=== PATIENT | male | born 1960 | race Caucasian/White ===

== ENCOUNTER 2018-04-04 11:33 | Emergency (ER) | payer BC, OTHER ==
[2018-04-04] MEDS ORDERED: Sodium Chloride 0.9% 1000 ML 1,000 ML IV STA (11:53)
--- NOTE | 2018-04-04 11:58 | ERPHSYRPT ---
- History of Present Illness Time Seen by Provider: 04/04/18 11:55 Source: patient Exam Limitations: no limitations Patient Subjective Stated Complaint: pt reports he has had a headache since tuesday-states he went to pcp yesterday and has inner fluid in his ear-placed on bactrim and given a toradol im injection yesterday at [facility]-states that his headache has not improved-denies numbness or tinlging or dizziness Triage Nursing Assessment: pt ambulatory in ed waiting room with no difficulty- moving all extremities with ease-states that he can not ambulate to ed room-pt moving all extremities with ease-no confusion noted-resp easy and nonlaobred Physician History: mild to mod headache for 4 days, no injury, no NV, no visual disturbance, no fever, speech fluent Allergies/Adverse Reactions: MICROSTITCHING Allergy (Uncoded 04/04/18 11:50) Home Medications: Hydrocodone Bit/Acetaminophen [Hydrocodon-Acetaminophen 5-325] 1 tab PO BID PRN 09/05/15 [History] Lisinopril 20 mg [Zestril 20 MG] 20 mg PO DAILY 09/05/15 [History] Omeprazole 40 mg PO DAILY 04/04/18 [History] Hx Tetanus, Diphtheria Vaccination/Date Given: Yes Hx Influenza Vaccination/Date Given: No Hx Pneumococcal Vaccination/Date Given: No Immunizations Up to Date: Yes - Review of Systems Constitutional: No Fever Eyes: No Photophobia, No Vision Changes Ears, Nose, & Throat: No Ear Discharge, No Throat Pain Respiratory: No Cough, No Dyspnea Cardiac: No Chest Pain Abdominal/Gastrointestinal: No Abdominal Pain, No Vomiting Musculoskeletal: No Back Pain, No Neck Pain Skin: No Rash Neurological: Headache, No Dizziness, No Focal Weakness, No Lethargy - Past Medical History Pertinent Past Medical History: Yes Cardiac History: Hypertension GI Medical History: Gallbladder Disease - Past Surgical History Past Surgical History: Yes Gastrointestinal: Cholecystectomy Musculoskeletal: Orthopedic Surgery Other Surgical History: RIGHT FOOT SURGERY - Social History Smoking Status: Former smoker Exposure to second hand smoke: No Drug Use: none Patient Lives Alone: No - Nursing Vital Signs Nursing Vital Signs: Initial Vital Signs Temperature 99.2 F 04/04/18 11:43 Pulse Rate 109 H 04/04/18 11:43 Respiratory Rate 18 04/04/18 11:43 Blood Pressure 128/89 04/04/18 11:43 O2 Sat by Pulse Oximetry 96 04/04/18 11:43 Pain Scale Pain Intensity 3 - Physical Exam General Appearance: no apparent distress Eye Exam: PERRL/EOMI, eyes nml inspection Ears, Nose, Throat Exam: moist mucous membranes Neck Exam: normal inspection, supple, full range of motion, No meningismus Respiratory Exam: normal breath sounds Cardiovascular Exam: regular rate/rhythm Gastrointestinal/Abdominal Exam: soft, No tenderness Back Exam: normal inspection, normal range of motion, No vertebral tenderness Extremity Exam: normal inspection, 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) Mental Status Exam: alert, oriented x 3, cooperative, other (cn 3 to 10 grossly intact) 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 Skin Exam: normal color, warm, dry SpO2 Interpretation: normal SpO2: 96 Oxygen Delivery: Room Air Procedures - Lumbar Puncture Timeout: Performed Indication: headache Lumbar Puncture: consent obtained, sitting, 1% lidocaine local anesth, size of needle, 3-4 lumbar space, fluid color clear, no complications Progress: 6cc clear and colorless csf under sterile prep, wbc 1, rbc 0, glu and prot grossly normal, OP normal range - Course Nursing assessment & vital signs reviewed: Yes - CT Exams Head CT Interpretation: Negative, Discussed w/radiologist Ordered Tests: Active Orders 24 hr Category Date Time Status HEAD WITHOUT CONTRAST [CT] Stat Exams 04/04/18 11:53 Completed CBC W DIFF Stat Lab 04/04/18 12:03 Completed CMP Stat Lab 04/04/18 12:03 Completed CSF GLUCOSE Stat Lab 04/04/18 18:12 Completed CSF PROTEIN Stat Lab 04/04/18 18:12 Completed CSF, CELL COUNT Stat Lab 04/04/18 18:12 Completed Erythrocyte Sedimentation Rate Stat Lab 04/04/18 12:03 Completed Manual Differential NC Stat Lab 04/04/18 12:03 Completed PROTIME WITH INR Stat Lab 04/04/18 12:03 Completed Medication Summary Discontinued Medications Generic Name Dose Route Start Last Admin Trade Name Freq PRN Reason Stop Dose Admin Acetaminophen 975 mg 04/04/18 11:53 04/04/18 12:25 Tylenol 325 Mg PO 04/04/18 11:54 975 mg STAT ONE Administration Acetaminophen Confirm 04/04/18 11:59 Tylenol 325 Mg Administered 04/04/18 12:00 Dose 975 mg .ROUTE .STK-MED ONE Acetaminophen Confirm 04/04/18 12:19 Tylenol 325 Mg Administered 04/04/18 12:20 Dose 975 mg .ROUTE .STK-MED ONE Sodium Chloride 1,000 mls @ 999 mls/hr 04/04/18 11:53 04/04/18 12:01 Sodium Chloride 0.9% 1000 Ml IV 04/04/18 12:53 999 mls/hr .Q1H1M STA Administration Sodium Chloride Confirm 04/04/18 11:59 Sodium Chloride 0.9% 1000 Ml Administered 04/04/18 12:00 Dose 1,000 mls @ ud .ROUTE .STK-MED ONE Lactated Ringer's Confirm 04/04/18 18:07 Lactated Ringers Administered 04/04/18 18:08 Dose 1,000 mls @ ud IV .STK-MED ONE Morphine Sulfate 4 mg 04/04/18 12:40 04/04/18 13:44 Morphine Sulfate 4 Mg Inj IV 04/04/18 12:41 4 mg STAT ONE Administration Morphine Sulfate Confirm 04/04/18 13:41 Morphine Sulfate 4 Mg Inj Administered 04/04/18 13:42 Dose 4 mg .ROUTE .STK-MED ONE Morphine Sulfate 2 mg 04/04/18 14:37 04/04/18 14:40 Morphine Sulfate 2 Mg Inj IV 04/04/18 14:38 2 mg STAT ONE Administration Morphine Sulfate Confirm 04/04/18 14:39 Morphine Sulfate 2 Mg Inj Administered 04/04/18 14:40 Dose 2 mg .ROUTE .STK-MED ONE Lab/Rad Data: Laboratory Result Diagrams 04/04/18 12:03 04/04/18 12:03 Laboratory Results 04/04/18 04/04/18 04/04/18 Range/Units 18:12 18:12 12:03 WBC (4.0-10.5) K/mm3 RBC (4.1-5.6) M/mm3 Hgb (12.5-18.0) gm/dl Hct (42-50) % MCV (78-100) fl MCH (26-32) pg MCHC (32-36) g/dl RDW (11.5-14.0) % Plt Count (150-450) K/mm3 MPV (6-9.5) fl Gran % (36.0-66.0) % Eos # (Auto) (0-0.5) Absolute Lymphs (auto) (1.0-4.6) Absolute Monos (auto) (0.0-1.3) Lymphocytes % (24.0-44.0) % Monocytes % (0.0-12.0) % Eosinophils % (0.00-5.0) % Basophils % (0.0-0.4) % Absolute Granulocytes (1.4-6.9) Basophils # (0-0.4) ESR (0-15) mm/hr PT (8.83-12.87) SECONDS INR (0.8-3.0) Sodium 138 (137-145) mmol/L Potassium 4.0 (3.5-5.1) mmol/L Chloride 101 (98-107) mmol/L Carbon Dioxide 22 (22-30) mmol/L Anion Gap 19.1 H (5-15) MEQ/L BUN 26 H (9-20) mg/dL Creatinine 1.05 (0.66-1.25) mg/dL Estimated GFR > 60.0 ML/MIN Glucose 133 H (74-106) mg/dL Calcium 9.8 (8.4-10.2) mg/dL Total Bilirubin 4.00 H (0.2-1.3) mg/dL AST 35 (17-59) U/L ALT 26 (0-50) U/L Alkaline Phosphatase 190 H (38-126) U/L Serum Total Protein 8.5 H (6.3-8.2) g/dL Albumin 4.6 (3.5-5.0) g/dL CSF Color COLORLESS CSF Clarity CLEAR CSF WBC 1 (0-6) CU. MM CSF RBC 0 (0-2) CU. MM CSF Protein (2) 31 (12-60) mg/dL CSF Glucose 72 H (40-70) mg/dL Slides for Path Review 04/04/18 04/04/18 Range/Units 12:03 12:03 WBC 11.4 H (4.0-10.5) K/mm3 RBC 5.00 (4.1-5.6) M/mm3 Hgb 14.8 (12.5-18.0) gm/dl Hct 44.2 (42-50) % MCV 88.4 (78-100) fl MCH 29.6 (26-32) pg MCHC 33.5 (32-36) g/dl RDW 13.6 (11.5-14.0) % Plt Count 117 L (150-450) K/mm3 MPV 13.5 H (6-9.5) fl Gran % 84.1 H (36.0-66.0) % Eos # (Auto) 0.01 (0-0.5) Absolute Lymphs (auto) 0.41 L (1.0-4.6) Absolute Monos (auto) 1.37 H (0.0-1.3) Lymphocytes % 3.6 L (24.0-44.0) % Monocytes % 12.0 (0.0-12.0) % Eosinophils % 0.1 (0.00-5.0) % Basophils % 0.2 (0.0-0.4) % Absolute Granulocytes 9.62 H (1.4-6.9) Basophils # 0.02 (0-0.4) ESR 20 H (0-15) mm/hr PT 14.9 H (8.83-12.87) SECONDS INR 1.28 (0.8-3.0) Sodium (137-145) mmol/L Potassium (3.5-5.1) mmol/L Chloride (98-107) mmol/L Carbon Dioxide (22-30) mmol/L Anion Gap (5-15) MEQ/L BUN (9-20) mg/dL Creatinine (0.66-1.25) mg/dL Estimated GFR ML/MIN Glucose (74-106) mg/dL Calcium (8.4-10.2) mg/dL Total Bilirubin (0.2-1.3) mg/dL AST (17-59) U/L ALT (0-50) U/L Alkaline Phosphatase (38-126) U/L Serum Total Protein (6.3-8.2) g/dL Albumin (3.5-5.0) g/dL CSF Color CSF Clarity CSF WBC (0-6) CU. MM CSF RBC (0-2) CU. MM CSF Protein (2) (12-60) mg/dL CSF Glucose (40-70) mg/dL Slides for Path Review YES - Progress Progress: improved Progress Note: 04/04/18 18:34 continue your outpatient bactrim ds. differential d/w pt as sinusitis, migraine , cancer 04/04/18 18:37 Counseled pt/family regarding: lab results, diagnosis, need for follow-up, rad results - Departure Time of Disposition: 18:35 Departure Disposition: Home Clinical Impression: Headache Qualifiers: Headache type: other headache syndrome Qualified Code(s): G44.89 - Other headache syndrome Condition: Stable Critical Care Time: No Referrals: JALEN ROMANO [Primary Care Provider] - Instructions: Headache, Adult (DC) Additional Instructions: continue your bactrim ds, norco script warnings given, return if worse, see your doctor
[2018-04-04] MEDS ORDERED: Sodium Chloride 0.9% 1000 ML 1,000 ML ONE (11:59)
[2018-04-04] MEDS ORDERED: TYLENOL 325 MG ONE ×2 (11:59→12:19)
[2018-04-04] MEDS: TYLENOL 325 MG PO ONE ×2 (12:03→12:25)
[2018-04-04 12:08] LABS: Granulocyte Absolute (ANC) 9.62 (1.4-6.9); Hematocrit 44.2 % (42-50); Hemoglobin 14.8 gm/dl (12.5-18.0); Mean Cell Volume 88.4 fl (78-100); Mean Corpuscular Hemoglobin 29.6 pg (26-32); Mean Corpuscular Hgb Concent. 33.5 g/dl (32-36); Mean Platelet Volume 13.5 fl (6-9.5); Platelet Count 117 K/mm3 (150-450); Red Cell Distribution Width 13.6 % (11.5-14.0); White Blood Count 11.4 K/mm3 (4.0-10.5)
[2018-04-04 12:18] LABS: ALBUMIN 4.6 g/dL (3.5-5.0); ALKALINE PHOSPHATASE 190 U/L (38-126); ANION GAP 19.1 MEQ/L (5-15); BLOOD UREA NITROGEN 26 mg/dL (9-20); CHLORIDE 101 mmol/L (98-107); Calcium 9.8 mg/dL (8.4-10.2); Carbon Dioxide 22 mmol/L (22-30); Creatinine 1 1.05 mg/dL (0.66-1.25); Glucose 133 mg/dL (74-106); SGOT/AST 35 U/L (17-59); SGPT/ALT 26 U/L (0-50); SODIUM 138 mmol/L (137-145); Total Protein 8.5 g/dL (6.3-8.2)
[2018-04-04 12:33] LABS: INR 1.28 (0.8-3.0)
--- NOTE | 2018-04-04 12:37 | XRAY ---
Indication: Headache and weakness. Multiple contiguous axial images obtained through the head without contrast. Comparison: None Normal appearing brain parenchyma, ventricles, and bony calvarium. Visualized paranasal sinuses and mastoid air cells are clear. Impression: Normal CT head without contrast exam. CT DI 67.41
[2018-04-04] MEDS ORDERED: MORPHINE SULFATE 4 MG INJ IV ONE (12:40)
[2018-04-04 12:54] LABS: BASOPHIL % 0.2 % (0.0-0.4); Basophil (Absolute #) 0.02 (0-0.4); Eosinophil % 0.1 % (0.00-5.0); Eosinophil (Absolute #) 0.01 (0-0.5); Granulocytes % 84.1 % (36.0-66.0); Lymphocyte (Absolute #) 0.41 (1.0-4.6); Lymphocytes % 3.6 % (24.0-44.0); Monocyte (Absolute #) 1.37 (0.0-1.3)
[2018-04-04 13:01] LABS: Slide Review 1 YES
[2018-04-04] MEDS ORDERED: MORPHINE SULFATE 4 MG INJ ONE (13:41)
[2018-04-04] MEDS ORDERED: MORPHINE SULFATE 2 MG INJ IV ONE (14:37)
[2018-04-04] MEDS ORDERED: MORPHINE SULFATE 2 MG INJ ONE (14:39)
[2018-04-04 17:26] LABS: Erythrocyte Sedimentation Rate 20 mm/hr (0-15)
[2018-04-04] MEDS ORDERED: Lactated Ringers 1,000 ML IV ONE (18:07)
[2018-04-04 18:22] LABS: CSF GLUCOSE 72 mg/dL (40-70); CSF PROTEIN 31 mg/dL (12-60)
[2018-04-04 18:25] LABS: CSF CLARITY CLEAR; CSF COLOR COLORLESS; CSF RBCS 0 CU. MM (0-2)
[2018-04-04 18:26] LABS: CSF WBCS 1 CU. MM (0-6)
[2018-04-04 19:14] VITALS: BP 127/89; PULSE 78; O2SAT 100
== END 2018-04-04 19:36 | disposition home or self-care (01) ==
LOC: ED 11:33
DX: G44.89 Other headache syndrome (principal); Z79.899 Other long term (current) drug therapy
CPT/HCPCS: 36415; 62270; 70450; 80053; 82945; 84157; 85025; 85610; 85652; 89050; 96360; 96374; 96376; 99284; 99285; J2270; A9270-GY

== ENCOUNTER 2019-03-20 12:03 | Emergency (ER) | payer BC ==
[2019-03-20] MEDS ORDERED: TORAdol 30 mg Injection IM ONE (12:33)
[2019-03-20] MEDS ORDERED: TORAdol 30 mg Injection ONE (12:35)
[2019-03-20 12:36] VITALS: O2SAT 98
--- NOTE | 2019-03-20 12:37 | ERPHSYRPT ---
- History of Present Illness Time Seen by Provider: 03/20/19 12:26 Source: patient Exam Limitations: no limitations Physician History: 58-year-old white male with history of high blood pressure, arthritis, chronic pain Patient arrives with complaint of pain in his right foot along the lateral distal first metacarpal symptoms off and on since Tuesday 3 days ago. He denies any injury. Patient is chronically on narcotic analgesia currently taking oxycodone 10/325 he received 120 of these on March 06, 2019 he states he takes this for hand pain. Past medical history includes high blood pressure, arthritis Past surgical history includes cholecystectomy, orthopedic surgery with a right foot Social history former smoker occasional alcohol denies illicit drug use Method of Injury: unknown Occurred: days ago (pain for 3 days) Quality: intermittent, sharpness, stabbing Severity of Pain-Max: moderate Severity of Pain-Current: mild Lower Extremities Pain: foot: right Modifying Factors: Improves With: nothing Associated Symptoms: none Allergies/Adverse Reactions: piperacillin [From Zosyn] Allergy (Verified 03/20/19 12:40) suture Allergy (Verified 03/20/19 12:45) states is allergic to vicryl stitching tazobactam [From Zosyn] Allergy (Verified 03/20/19 12:40) Home Medications: Lisinopril 20 mg [Zestril 20 MG] 20 mg PO DAILY 09/05/15 [History] Omeprazole 40 mg PO DAILY 04/04/18 [History] Multivitamin [[id number]] 1 each PO DAILY 03/20/19 [History] Oxycodone / APAP 10/325 mg [Oxycodone-Acetaminophen 10-325] 1 tab PO QID 03/20/19 [History] Tizanidine HCl 2 mg PO BID 03/20/19 [History] Hx Tetanus, Diphtheria Vaccination/Date Given: Yes Hx Influenza Vaccination/Date Given: No Hx Pneumococcal Vaccination/Date Given: No - Review of Systems Constitutional: No Fever, No Chills Eyes: No Symptoms Ears, Nose, & Throat: No Symptoms Respiratory: No Cough, No Dyspnea Cardiac: No Chest Pain, No Edema, No Syncope Abdominal/Gastrointestinal: No Abdominal Pain, No Nausea, No Vomiting, No Diarrhea Genitourinary Symptoms: No Dysuria Musculoskeletal: Other (right foot pain) Skin: No Rash Neurological: No Dizziness, No Focal Weakness, No Sensory Changes Psychological: No Symptoms Endocrine: No Symptoms All Other Systems: Reviewed and Negative - Past Medical History Pertinent Past Medical History: Yes Cardiac History: Hypertension GI Medical History: Gallbladder Disease - Past Surgical History Past Surgical History: Yes Gastrointestinal: Cholecystectomy Musculoskeletal: Orthopedic Surgery Other Surgical History: RIGHT FOOT SURGERY - Social History Smoking Status: Former smoker Exposure to second hand smoke: No Drug Use: none Patient Lives Alone: No - Nursing Vital Signs Nursing Vital Signs: Initial Vital Signs Temperature 97.6 F 03/20/19 12:12 Pulse Rate 68 03/20/19 12:12 Respiratory Rate 16 03/20/19 12:12 Blood Pressure 119/73 03/20/19 12:12 O2 Sat by Pulse Oximetry 98 03/20/19 12:12 Pain Scale Pain Intensity [] 10 Pain Intensity 10 - Physical Exam General Appearance: alert Eyes, Ears, Nose, Throat Exam: moist mucous membranes Neck Exam: non-tender, supple Cardiovascular/Respiratory Exam: chest non-tender, normal breath sounds, regular rate/rhythm, no respiratory distress Gastrointestinal/Abdominal Exam: non-tender, soft, no organomegaly, guarding, No tenderness Back Exam: normal inspection, No vertebral tenderness Hips Exam: bilateral: non-tender, normal inspection, normal range of motion, no evidence of injury Legs Exam: bilateral leg: non-tender, normal inspection, normal range of motion , no evidence of injury Knees Exam: bilateral knee: non-tender, normal inspection, normal range of motion, no evidence of injury Ankle Exam: bilateral ankle: non-tender, normal inspection, normal range of motion, no evidence of injury Foot Exam: right foot: other (mild tenderness with palpation. Right foot medial surface along first metatarsal.), left foot: non-tender, normal inspection, bilateral foot: normal range of motion DTR - Lower Extremities Exam: ankle (R): 2+, ankle (L): 2+ Neuro/Tendon Exam: normal sensation, normal motor functions Mental Status Exam: alert, oriented x 3, cooperative Skin Exam: normal color, warm, dry SpO2 Interpretation: normal (98%) - Course Nursing assessment & vital signs reviewed: Yes - Radiology Exams Right Foot X-ray Interpretation: Discussed w/ radiologist (x-ray right foot: Impression old calcaneal fracture with intact lateral plates/screws. No other bony, articu , or soft tissue abnormalities.) Ordered Tests: Active Orders 24 hr Category Date Time Status FOOT (MINIMUM 3 VIEWS) Stat Exams 03/20/19 12:32 Completed Medication Summary Discontinued Medications Generic Name Dose Route Start Last Admin Trade Name Jose PRN Reason Stop Dose Admin Ketorolac Tromethamine 60 mg 03/20/19 12:33 03/20/19 12:36 Toradol 30 Mg Injection IM 03/20/19 12:34 60 mg STAT ONE Administration Ketorolac Tromethamine Confirm 03/20/19 12:35 Toradol 30 Mg Injection Administered 03/20/19 12:36 Dose 60 mg .ROUTE .[employer]-MED ONE - Progress Progress: improved Progress Note: 03/20/19 13:07 58-year-old white male arrives with complaint of intermittent right foot pain for 3 days. No known injury. Patient with old calcaneal fracture on the right foot. Patient with chronic pain and is on Percocet chronically. 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 X-ray right foot no acute fractures. Will go ahead and place postop shoe on patient's right foot patient is given Toradol Will place him on Naprosyn 500 mg orally twice a day #10. Will have patient off work tomorrow. Follow-up with his family doctor if symptoms worse no better in 48 hours or persist longer than one week. - Departure Departure Disposition: Home Clinical Impression: Right foot pain Condition: Fair Critical Care Time: No Referrals: JALEN ROMANO [Primary Care Provider] - Additional Instructions: Return home. Cold packs right foot 24-48 hours. Naprosyn as prescribed. Narcotic analgesia as prescribed by your pain airport control operator. Follow-up with your family doctor if symptoms are worse, no better in 48 hours, or persist longer than one week. Return for acute distress or for severe symptoms. Prescriptions: Naproxen 500 mg [Naprosyn 500 MG] 500 mg PO BIDPRN PRN #10 tablet PRN Reason: Pain
--- NOTE | 2019-03-20 13:00 | XRAY ---
Indication: Pain. No known injury. Comparison: None 3 nonweightbearing views of the right foot demonstrates old calcaneal fracture with intact lateral plate/screws. No other bony, articular, or soft tissue abnormalities.
[2019-03-20 13:20] VITALS: BP 114/60; PULSE 64
== END 2019-03-20 13:30 | disposition home or self-care (01) ==
LOC: ED 12:03
DX: M79.671 Pain in right foot (principal); M19.90 Unspecified osteoarthritis, unspecified site
CPT/HCPCS: 73630; 96372; 99284; J1885

== ENCOUNTER 2019-12-17 03:20 | Emergency (ER) | payer BC, OTHER ==
[2019-12-17] MEDS ORDERED: Zofran 4 MG/2 ML VIAL IV ONE ×2 (04:11→08:29)
[2019-12-17] MEDS ORDERED: MORPHINE SULFATE 4 MG INJ IV ONE ×2 (04:11→05:22)
[2019-12-17 04:19] LABS: Absolute Neutrophil Ct (ANC) 13.38 (1.4-6.9); BASOPHIL % 0.1 % (0.0-0.4); Basophil (Absolute #) 0.01 (0-0.4); Eosinophil (Absolute #) 0 (0-0.5); Hematocrit 46.9 % (42-50); Hemoglobin 16.1 gm/dl (12.5-18.0); Mean Cell Volume 89.2 fl (78-100); Mean Corpuscular Hemoglobin 30.6 pg (26-32); Mean Corpuscular Hgb Concent. 34.3 g/dl (32-36); Mean Platelet Volume 12.8 fl (7.5-11.0); Monocyte (Absolute #) 1.13 (0.0-1.3); Monocytes % 7.6 % (0.0-12.0); Neutrophil % 90.3 % (36.0-66.0); Platelet Count 140 K/mm3 (150-450); Red Blood Count 5.26 M/mm3 (4.1-5.6); Red Cell Distribution Width 13.4 % (11.5-14.0); White Blood Count 14.8 K/mm3 (4.0-10.5)
[2019-12-17] MEDS ORDERED: MORPHINE SULFATE 4 MG INJ ONE ×2 (04:19→05:25)
[2019-12-17] MEDS ORDERED: Sodium Chloride 0.9% 1000 ML 1,000 ML ONE (04:19)
[2019-12-17] MEDS ORDERED: Zofran 4 MG/2 ML VIAL ONE ×2 (04:19→08:37)
[2019-12-17] MEDS: Sodium Chloride 0.9% 1000 ML 1,000 ML IV SCH ×2 (04:23→04:59)
--- NOTE | 2019-12-17 04:26 | ERPHSYRPT ---
- History of Present Illness Historian: patient, family Exam Limitations: no limitations Patient Subjective Stated Complaint: pt states that he has had n/v/d for the past couple of days, pt states that he has a headache and abdomen pain, pt states that he has vomited a handful of times, pt states that he has had 1 loose stool, pt states he has had poor oral intake for the past couple of days, pt states he took gas x at 2230 on 12/16/19 Triage Nursing Assessment: pt ambulated into the er, pt is axo x4, pt has hypoactive bowel sounds in all quads, pt abdomen is firm, pt has pain midline of abdomen, pt has clear lung sounds, pt scleras are mildly yellow, pt states 4/ 10 pain to head and abdomen, pt c/o of n/v, pt is hypertensive Timing/Duration: day(s) Activities at Onset: none Quality: sharpness, stabbing, throbbing Abdominal Pain Onset Location: RUQ, RLQ, epigastric Severity of Pain-Max: moderate Severity of Pain-Current: moderate Modifying Factors: Improves With: movement, palpation, vomiting Associated Symptoms: diarrhea, fever/chills, headache, nausea, vomiting Previous symptoms: no prior history, no recent treatment Hx Tetanus, Diphtheria Vaccination/Date Given: Yes (unknown) Hx Influenza Vaccination/Date Given: No Hx Pneumococcal Vaccination/Date Given: No <JOSE L POTTER - Last Filed: 12/17/19 07:04> <SETH MURDOCK - Last Filed: 12/18/19 00:10> - History of Present Illness Time Seen by Provider: 12/17/19 04:21 Physician History: pt has had n/v/d a few days but now has abdominal pain and maybe fever - appears jaundiced - no trauma; tender RUQ and entire right abdomen; (JOSE L POTTER) Allergies/Adverse Reactions: piperacillin [From Zosyn] Allergy (Verified 12/17/19 03:44) suture Allergy (Verified 12/17/19 03:44) states is allergic to vicryl stitching tazobactam [From Zosyn] Allergy (Verified 12/17/19 03:44) Home Medications: Lisinopril 20 mg [Zestril 20 MG] 20 mg PO DAILY 09/05/15 [History] Omeprazole 40 mg PO DAILY 04/04/18 [History] Multivitamin [[id number]] 1 each PO DAILY 03/20/19 [History] Pravastatin Sodium 40 mg PO DAILY 12/17/19 [History] - Review of Systems Constitutional: Fever, Chills, Malaise Eyes: No Symptoms Ears, Nose, & Throat: No Symptoms Respiratory: No Cough, No Dyspnea Cardiac: No Chest Pain, No Edema, No Syncope Abdominal/Gastrointestinal: Abdominal Pain, Nausea, Vomiting, Diarrhea Genitourinary Symptoms: No Dysuria Musculoskeletal: Arthralgias, Myalgias, No Back Pain, No Neck Pain Skin: No Symptoms, No Rash Neurological: No Dizziness, No Focal Weakness, No Sensory Changes Psychological: No Symptoms Endocrine: No Symptoms All Other Systems: Reviewed and Negative <JOSE L POTTER - Last Filed: 12/17/19 07:04> - Past Medical History Pertinent Past Medical History: Yes Cardiac History: Hypertension GI Medical History: Gallbladder Disease 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 - Past Surgical History Past Surgical History: Yes Gastrointestinal: Cholecystectomy Musculoskeletal: Orthopedic Surgery Other Surgical History: RIGHT FOOT SURGERY, surgery on rt hand - Social History Smoking Status: Former smoker Exposure to second hand smoke: Yes Drug Use: none Patient Lives Alone: No <JOSE L POTTER - Javi Filed: 12/17/19 07:04> - Physical Exam General Appearance: no apparent distress, alert Eye Exam: PERRL/EOMI, eyes nml inspection Ears, Nose, Throat Exam: normal ENT inspection, pharynx normal, moist mucous membranes Neck Exam: normal inspection, non-tender, supple, full range of motion Respiratory Exam: normal breath sounds, lungs clear, No respiratory distress Cardiovascular Exam: regular rate/rhythm, normal heart sounds Gastrointestinal/Abdomen Exam: soft, tenderness, guarding, rebound, No mass Rectal Exam: deferred Back Exam: normal inspection, normal range of motion, No CVA tenderness, No vertebral tenderness Extremity Exam: normal inspection, normal range of motion, pelvis stable Neurologic Exam: alert, oriented x 3, cooperative, normal mood/affect, nml cerebellar function, sensation nml, No motor deficits Skin Exam: normal color, warm, dry SpO2 Interpretation: normal SpO2: 95 O2 Delivery: Room Air <JOSE L POTTER - Last Filed: 12/17/19 07:04> - Physical Exam General Appearance: mild distress (The patient appears to be uncomfortable on my exam) Ears, Nose, Throat Exam: other (Mucus membranes appear to be dry on my exam) Cardiovascular Exam: normal peripheral pulses, tachycardia, capillary refill <2 sec Skin Exam: jaundice <SETH MURDOCK - Last Filed: 12/18/19 00:10> - Nursing Vital Signs Nursing Vital Signs: Initial Vital Signs Temperature 98.3 F 12/17/19 03:32 Pulse Rate 111 H 12/17/19 03:32 Respiratory Rate 15 12/17/19 03:32 Blood Pressure 155/97 12/17/19 03:32 O2 Sat by Pulse Oximetry 95 12/17/19 03:32 Pain Scale Pain Intensity 0 Procedures - Central Line Timeout: Performed Central Line Lumen: triple Lumen Size: 7 [place] Central Line Procedure: chlorahexadine prep, sterile drapes applied, sterile dressing applied, Aseptic Technique, Seldinger Technique, Intracath Central Line Postion: femoral (R) Anesthesia: 1% Lidocaine cc's of anesthesia: 5 Ultrasound Guided Placement: Yes Complications: none Central Line Post Position: sutured <SETH MURDOCK - Last Filed: 12/18/19 00:10> - Course Nursing assessment & vital signs reviewed: Yes EKG Interpreted by Me: Sinus Tach, Left Trivoli Deviation, 1st degree AV Block, Non -specific ST Changes <JOSE L POTTER - Last Filed: 12/17/19 07:04> - Course Nursing assessment & vital signs reviewed: Yes <SETH MURDOCK - Last Filed: 12/18/19 00:10> Ordered Tests: Active Orders 24 hr Category Date Time Status EKG-ER Only STAT Care 12/17/19 04:11 Active IV Insertion STAT Care 12/17/19 04:11 Active IV Insertion STAT Care 12/17/19 07:16 Active NPO (ED) STAT Care 12/17/19 04:11 Active PO Fluid Challenge STAT Care 12/17/19 08:30 Active Re-Check Vital Signs STAT Care 12/17/19 08:18 Active ABDOMEN AND PELVIS W/0 CONTRAS [CT] Stat Exams 12/17/19 04:11 Completed ACETAMINOPHEN Stat Lab 12/17/19 04:30 Completed AMYLASE Stat Lab 12/17/19 04:19 Completed BMP Stat Lab 12/17/19 13:12 Completed CBC W DIFF Stat Lab 12/17/19 04:19 Completed CBC W DIFF Stat Lab 12/17/19 13:12 Completed CMP Stat Lab 12/17/19 04:19 Completed Hepatic Function Panel Stat Lab 12/17/19 13:12 Completed LIPASE Stat Lab 12/17/19 04:19 Completed Lactic Acid Stat Lab 12/17/19 05:08 Completed Lactic Acid Stat Lab 12/17/19 13:15 Completed PROTIME WITH INR Stat Lab 12/17/19 04:40 Completed TROPONIN Q3H Lab 12/17/19 04:19 Completed TROPONIN Q3H Lab 12/17/19 07:20 Completed TROPONIN Q3H Lab 12/17/19 10:10 Completed TROPONIN Q3H Lab 12/17/19 13:00 Completed TROPONIN Q3H Lab 12/17/19 16:15 Completed UA W/RFX UR CULTURE Stat Lab 12/17/19 06:00 Completed Medication Summary Discontinued Medications Generic Name Dose Route Start Last Admin Trade Name Freq PRN Reason Stop Dose Admin Acetaminophen 975 mg 12/17/19 10:14 12/17/19 10:22 Tylenol 325 Mg PO 12/17/19 10:15 975 mg STAT ONE Administration Acetaminophen Confirm 12/17/19 10:21 Tylenol 325 Mg Administered 12/17/19 10:22 Dose 975 mg .ROUTE .STK-MED ONE Acetaminophen Confirm 12/17/19 16:59 Tylenol Extra Strength 500 Mg Administered 12/17/19 17:00 Dose 1,000 mg .ROUTE .STK-MED ONE Diphenhydramine HCl 25 mg 12/17/19 05:22 12/17/19 05:32 Benadryl 50 Mg/Ml IV 12/17/19 05:23 25 mg STAT ONE Administration Diphenhydramine HCl Confirm 12/17/19 05:25 Benadryl 50 Mg/Ml Administered 12/17/19 05:26 Dose 50 mg .ROUTE .STK-MED ONE Hydromorphone HCl 1 mg 12/17/19 08:29 12/17/19 08:39 Hydromorphone 1 Mg/Ml Ampule IV 12/17/19 08:30 1 mg STAT ONE Administration Hydromorphone HCl Confirm 12/17/19 08:37 Hydromorphone 1 Mg/Ml Ampule Administered 12/17/19 08:38 Dose 1 mg .ROUTE .STK-MED ONE Sodium Chloride 1,000 mls @ 100 mls/hr 12/17/19 04:15 12/17/19 04:59 Sodium Chloride 0.9% 1000 Ml IV 01/16/20 04:14 Not Given .Q10H BRITTANEY Sodium Chloride 1,000 mls @ 999 mls/hr 12/17/19 04:29 12/17/19 05:57 Sodium Chloride 0.9% 1000 Ml IV 12/17/19 05:29 Infused .Q1H1M STA Infusion Metronidazole 500 mg in 100 mls @ 200 mls/hr 12/17/19 04:34 12/17/19 05:17 Flagyl 500 Mg Ivpb IV 12/17/19 05:03 Infused STAT STA Infusion Ceftriaxone Sodium/Dextrose 1 g in 50 mls @ 100 mls/hr 12/17/19 04:34 05:16 Rocephin 1 Gm-D5w 50 Ml Bag IV 12/17/19 05:03 Infused STAT STA Infusion Ceftriaxone Sodium/Dextrose Confirm 12/17/19 04:42 Rocephin 1 Gm-D5w 50 Ml Bag Administered 12/17/19 04:43 Dose 1 g in 50 mls @ ud IV .STK-MED ONE Metronidazole Confirm 12/17/19 04:43 Flagyl 500 Mg Ivpb Administered 12/17/19 04:44 Dose 500 mg in 100 mls @ ud IV .STK-MED ONE Meropenem 1 g/ Sodium Chloride 100 mls @ 200 mls/hr 12/17/19 07:08 12/17/19 09:00 IV 12/17/19 07:37 Infused STAT STA Infusion Dextrose/Lactated Ringer's 1,000 mls @ 150 mls/hr 12/17/19 07:30 12/17/19 15: 19 Dextrose 5%-Lr Iv Solution 1000 Ml IV 01/16/20 07:29 Infused .Q6H40M BRITTANEY Infusion Lactated Ringer's 1,000 mls @ 999 mls/hr 12/17/19 07:17 12/17/19 09:00 Lactated Ringers IV 12/17/19 08:17 Infused .Q1H1M ONE Infusion Sodium Chloride Confirm 12/17/19 04:19 Sodium Chloride 0.9% 1000 Ml Administered 12/17/19 04:20 Dose 1,000 mls @ ud .ROUTE .STK-MED ONE Sodium Chloride Confirm 12/17/19 07:48 Sodium Chloride 0.9% 100 Ml Ivpb Administered 12/17/19 07:49 Dose 100 mls @ ud IV .STK-MED ONE Lactated Ringer's Confirm 12/17/19 07:49 Lactated Ringers Administered 12/17/19 07:50 Dose 1,000 mls @ ud IV .STK-MED ONE Metronidazole 500 mg in 100 mls @ 200 mls/hr 12/17/19 12:45 12/17/19 13:36 Flagyl 500 Mg Ivpb IV 12/17/19 13:14 Infused STAT STA Infusion Metronidazole Confirm 12/17/19 12:53 Flagyl 500 Mg Ivpb Administered 12/17/19 12:54 Dose 500 mg in 100 mls @ ud IV .STK-MED ONE Lactated Ringer's 1,000 mls @ 999 mls/hr 12/17/19 14:03 12/17/19 15:20 Lactated Ringers IV 12/17/19 15:03 Infused .Q1H1M ONE Infusion Lactated Ringer's Confirm 12/17/19 14:05 Lactated Ringers Administered 12/17/19 14:06 Dose 1,000 mls @ ud IV .STK-MED ONE Lactated Ringer's Confirm 12/17/19 17:29 Lactated Ringers Administered 12/17/19 17:30 Dose 1,000 mls @ ud IV .STK-MED ONE Dextrose/Lactated Ringer's Confirm 12/17/19 07:49 Dextrose 5%-Lr Iv Solution 1000 Ml Administered 12/17/19 07:50 Dose 1,000 mls @ ud IV .STK-MED ONE Dextrose/Lactated Ringer's Confirm 12/17/19 17:31 Dextrose 5%-Lr Iv Solution 1000 Ml Administered 12/17/19 17:32 Dose 1,000 mls @ ud IV .STK-MED ONE Ketorolac Tromethamine 30 mg 12/17/19 07:21 12/17/19 08:38 Toradol 30 Mg Injection IV 12/17/19 07:22 30 mg STAT ONE Administration Ketorolac Tromethamine Confirm 12/17/19 08:37 Toradol 30 Mg Injection Administered 12/17/19 08:38 Dose 30 mg .ROUTE .STK-MED ONE Ketorolac Tromethamine Confirm 12/17/19 12:53 Toradol 30 Mg Injection Administered 12/17/19 12:54 Dose 30 mg .ROUTE .STK-MED ONE Ketorolac Tromethamine 15 mg 12/17/19 12:53 12/17/19 13:03 Toradol 30 Mg Injection IV 12/17/19 12:54 15 mg STAT ONE Administration Ketorolac Tromethamine 15 mg 12/17/19 12:54 12/17/19 13:08 Toradol 30 Mg Injection IV 12/17/19 12:55 Not Given STAT ONE Ketorolac Tromethamine 15 mg 12/17/19 13:01 12/17/19 13:13 Toradol 30 Mg Injection IV 12/17/19 13:02 Not Given STAT ONE Lidocaine HCl Confirm 12/17/19 16:41 Xylocaine 1% Hcl 20 Ml Mdv Administered 12/17/19 16:42 Dose 10 ml .ROUTE .STK-MED ONE Meropenem Confirm 12/17/19 07:48 Merrem 1 Gm Administered 12/17/19 07:49 Dose 1 g IV .STK-MED ONE Morphine Sulfate 4 mg 12/17/19 04:11 12/17/19 04:21 Morphine Sulfate 4 Mg Inj IV 12/17/19 04:12 4 mg STAT ONE Administration Morphine Sulfate Confirm 12/17/19 04:19 Morphine Sulfate 4 Mg Inj Administered 12/17/19 04:20 Dose 4 mg .ROUTE .STK-MED ONE Morphine Sulfate 4 mg 12/17/19 05:22 12/17/19 05:34 Morphine Sulfate 4 Mg Inj IV 12/17/19 05:23 4 mg STAT ONE Administration Morphine Sulfate Confirm 12/17/19 05:25 Morphine Sulfate 4 Mg Inj Administered 12/17/19 05:26 Dose 4 mg .ROUTE .STK-MED ONE Ondansetron HCl 4 mg 12/17/19 04:11 12/17/19 04:22 Zofran 4 Mg/2 Ml Vial IV 12/17/19 04:12 4 mg STAT ONE Administration Ondansetron HCl Confirm 12/17/19 04:19 Zofran 4 Mg/2 Ml Vial Administered 12/17/19 04:20 Dose 4 mg .ROUTE .STK-MED ONE Ondansetron HCl 4 mg 12/17/19 08:29 12/17/19 08:39 Zofran 4 Mg/2 Ml Vial IV 12/17/19 08:30 4 mg STAT ONE Administration Ondansetron HCl Confirm 12/17/19 08:37 Zofran 4 Mg/2 Ml Vial Administered 12/17/19 08:38 Dose 4 mg .ROUTE .STK-MED ONE Pantoprazole Sodium 40 mg 12/17/19 07:20 12/17/19 08:38 Protonix 40 Mg Iv IV 12/17/19 07:21 40 mg STAT ONE Administration Pantoprazole Sodium Confirm 12/17/19 08:37 Protonix 40 Mg Iv Administered 12/17/19 08:38 Dose 40 mg IV .STK-MED ONE Lab/Rad Data: Laboratory Result Diagrams 12/17/19 13:12 12/17/19 13:12 Laboratory Results 12/17/19 12/17/19 12/17/19 Range/Units 16:15 13:15 13:12 WBC (4.0-10.5) K/mm3 RBC (4.1-5.6) M/mm3 Hgb (12.5-18.0) gm/dl Hct (42-50) % MCV (78-100) fl MCH (26-32) pg MCHC (32-36) g/dl RDW (11.5-14.0) % Plt Count (150-450) K/mm3 MPV (7.5-11.0) fl Gran % (36.0-66.0) % Eos # (Auto) (0-0.5) Absolute Lymphs (auto) (1.0-4.6) Absolute Monos (auto) (0.0-1.3) Lymphocytes % (24.0-44.0) % Monocytes % (0.0-12.0) % Eosinophils % (0.00-5.0) % Basophils % (0.0-0.4) % Absolute Granulocytes (1.4-6.9) Basophils # (0-0.4) PT (8.83-12.87) SECONDS INR (0.8-3.0) Sodium 137 (137-145) mmol/L Potassium 3.6 (3.5-5.1) mmol/L Chloride 102 (98-107) mmol/L Carbon Dioxide 25 (22-30) mmol/L Anion Gap 13.7 (5-15) MEQ/L BUN 19 (9-20) mg/dL Creatinine 0.90 (0.66-1.25) mg/dL Estimated GFR > 60.0 ML/MIN Glucose 117 H (74-106) mg/dL Lactic Acid 1.2 (0.4-2.0) Calcium 8.2 L D (8.4-10.2) mg/dL Total Bilirubin 6.20 H (0.2-1.3) mg/dL Direct Bilirubin 2.9 H (0.0-0.4) mg/dL AST 234 H (17-59) U/L ALT 313 H (0-50) U/L Alkaline Phosphatase 136 H (38-126) U/L Troponin I < 0.012 (0.000-0.034) ng/mL Serum Total Protein 6.6 (6.3-8.2) g/dL Albumin 3.7 (3.5-5.0) g/dL Amylase (30-110) U/L Lipase (23-300) U/L Urine Color (YELLOW) Urine Appearance (CLEAR) Urine pH (5-6) Ur Specific Lemmon (1.005-1.025) Urine Protein (Negative) Urine Ketones (NEGATIVE) Urine Blood (0-5) Abdullahi/ul Urine Nitrite (NEGATIVE) Urine Bilirubin (NEGATIVE) Urine Urobilinogen (0-1) mg/dL Ur Leukocyte Esterase (NEGATIVE) Urine WBC (Auto) (0-5) /HPF Urine RBC (Auto) (0-2) /HPF U Epithel Cells (Auto) (FEW) /HPF Urine Bacteria (Auto) (NEGATIVE) /HPF Urine Mucus (Auto) (NEGATIVE) /HPF Urine Culture Reflexed (NO) Urine Glucose (NEGATIVE) mg/dL Acetaminophen (10-30) ug/ml Influenza Type A Ag (NEGATIVE) Influenza Type B Ag (NEGATIVE) RSV (PCR) (Negative) Slides for Path Review 12/17/19 12/17/19 12/17/19 Range/Units 13:12 13:00 10:10 WBC 11.5 H (4.0-10.5) K/mm3 RBC 4.18 (4.1-5.6) M/mm3 Hgb 13.0 (12.5-18.0) gm/dl Hct 37.9 L (42-50) % MCV 90.7 (78-100) fl MCH 31.1 (26-32) pg MCHC 34.3 (32-36) g/dl RDW 13.4 (11.5-14.0) % Plt Count 107 L (150-450) K/mm3 MPV 12.6 H (7.5-11.0) fl Gran % 90.3 H (36.0-66.0) % Eos # (Auto) 0 (0-0.5) Absolute Lymphs (auto) 0.38 L (1.0-4.6) Absolute Monos (auto) 0.72 (0.0-1.3) Lymphocytes % 3.3 L (24.0-44.0) % Monocytes % 6.3 (0.0-12.0) % Eosinophils % 0.0 (0.00-5.0) % Basophils % 0.1 (0.0-0.4) % Absolute Granulocytes 10.40 H (1.4-6.9) Basophils # 0.01 (0-0.4) PT (8.83-12.87) SECONDS INR (0.8-3.0) Sodium (137-145) mmol/L Potassium (3.5-5.1) mmol/L Chloride (98-107) mmol/L Carbon Dioxide (22-30) mmol/L Anion Gap (5-15) MEQ/L BUN (9-20) mg/dL Creatinine (0.66-1.25) mg/dL Estimated GFR ML/MIN Glucose (74-106) mg/dL Lactic Acid (0.4-2.0) Calcium (8.4-10.2) mg/dL Total Bilirubin (0.2-1.3) mg/dL Direct Bilirubin (0.0-0.4) mg/dL AST (17-59) U/L ALT (0-50) U/L Alkaline Phosphatase (38-126) U/L Troponin I < 0.012 < 0.012 (0.000-0.034) ng/mL Serum Total Protein (6.3-8.2) g/dL Albumin (3.5-5.0) g/dL Amylase (30-110) U/L Lipase (23-300) U/L Urine Color (YELLOW) Urine Appearance (CLEAR) Urine pH (5-6) Ur Specific Lemmon (1.005-1.025) Urine Protein (Negative) Urine Ketones (NEGATIVE) Urine Blood (0-5) Abdullahi/ul Urine Nitrite (NEGATIVE) Urine Bilirubin (NEGATIVE) Urine Urobilinogen (0-1) mg/dL Ur Leukocyte Esterase (NEGATIVE) Urine WBC (Auto) (0-5) /HPF Urine RBC (Auto) (0-2) /HPF U Epithel Cells (Auto) (FEW) /HPF Urine Bacteria (Auto) (NEGATIVE) /HPF Urine Mucus (Auto) (NEGATIVE) /HPF Urine Culture Reflexed (NO) Urine Glucose (NEGATIVE) mg/dL Acetaminophen (10-30) ug/ml Influenza Type A Ag (NEGATIVE) Influenza Type B Ag (NEGATIVE) RSV (PCR) (Negative) Slides for Path Review YES 12/17/19 12/17/19 12/17/19 Range/Units 07:20 06:00 05:08 WBC (4.0-10.5) K/mm3 RBC (4.1-5.6) M/mm3 Hgb (12.5-18.0) gm/dl Hct (42-50) % MCV (78-100) fl MCH (26-32) pg MCHC (32-36) g/dl RDW (11.5-14.0) % Plt Count (150-450) K/mm3 MPV (7.5-11.0) fl Gran % (36.0-66.0) % Eos # (Auto) (0-0.5) Absolute Lymphs (auto) (1.0-4.6) Absolute Monos (auto) (0.0-1.3) Lymphocytes % (24.0-44.0) % Monocytes % (0.0-12.0) % Eosinophils % (0.00-5.0) % Basophils % (0.0-0.4) % Absolute Granulocytes (1.4-6.9) Basophils # (0-0.4) PT (8.83-12.87) SECONDS INR (0.8-3.0) Sodium (137-145) mmol/L Potassium (3.5-5.1) mmol/L Chloride (98-107) mmol/L Carbon Dioxide (22-30) mmol/L Anion Gap (5-15) MEQ/L BUN (9-20) mg/dL Creatinine (0.66-1.25) mg/dL Estimated GFR ML/MIN Glucose (74-106) mg/dL Lactic Acid 1.9 (0.4-2.0) Calcium (8.4-10.2) mg/dL Total Bilirubin (0.2-1.3) mg/dL Direct Bilirubin (0.0-0.4) mg/dL AST (17-59) U/L ALT (0-50) U/L Alkaline Phosphatase (38-126) U/L Troponin I < 0.012 (0.000-0.034) ng/mL Serum Total Protein (6.3-8.2) g/dL Albumin (3.5-5.0) g/dL Amylase (30-110) U/L Lipase (23-300) U/L Urine Color SACHA (YELLOW) Urine Appearance CLEAR (CLEAR) Urine pH 7.0 (5-6) Ur Specific Lemmon 1.017 (1.005-1.025) Urine Protein NEGATIVE (Negative) Urine Ketones TRACE (NEGATIVE) Urine Blood SMALL (0-5) Abdullahi/ul Urine Nitrite NEGATIVE (NEGATIVE) Urine Bilirubin SMALL (NEGATIVE) Urine Urobilinogen 4 (0-1) mg/dL Ur Leukocyte Esterase NEGATIVE (NEGATIVE) Urine WBC (Auto) 0-2 (0-5) /HPF Urine RBC (Auto) 6-10 (0-2) /HPF U Epithel Cells (Auto) RARE (FEW) /HPF Urine Bacteria (Auto) RARE (NEGATIVE) /HPF Urine Mucus (Auto) SLIGHT (NEGATIVE) /HPF Urine Culture Reflexed NO (NO) Urine Glucose NEGATIVE (NEGATIVE) mg/dL Acetaminophen (10-30) ug/ml Influenza Type A Ag (NEGATIVE) Influenza Type B Ag (NEGATIVE) RSV (PCR) (Negative) Slides for Path Review 12/17/19 12/17/19 12/17/19 Range/Units 04:40 04:40 04:30 WBC (4.0-10.5) K/mm3 RBC (4.1-5.6) M/mm3 Hgb (12.5-18.0) gm/dl Hct (42-50) % MCV (78-100) fl MCH (26-32) pg MCHC (32-36) g/dl RDW (11.5-14.0) % Plt Count (150-450) K/mm3 MPV (7.5-11.0) fl Gran % (36.0-66.0) % Eos # (Auto) (0-0.5) Absolute Lymphs (auto) (1.0-4.6) Absolute Monos (auto) (0.0-1.3) Lymphocytes % (24.0-44.0) % Monocytes % (0.0-12.0) % Eosinophils % (0.00-5.0) % Basophils % (0.0-0.4) % Absolute Granulocytes (1.4-6.9) Basophils # (0-0.4) PT 12.7 (8.83-12.87) SECONDS INR 1.12 (0.8-3.0) Sodium (137-145) mmol/L Potassium (3.5-5.1) mmol/L Chloride (98-107) mmol/L Carbon Dioxide (22-30) mmol/L Anion Gap (5-15) MEQ/L BUN (9-20) mg/dL Creatinine (0.66-1.25) mg/dL Estimated GFR ML/MIN Glucose (74-106) mg/dL Lactic Acid (0.4-2.0) Calcium (8.4-10.2) mg/dL Total Bilirubin (0.2-1.3) mg/dL Direct Bilirubin (0.0-0.4) mg/dL AST (17-59) U/L ALT (0-50) U/L Alkaline Phosphatase (38-126) U/L Troponin I (0.000-0.034) ng/mL Serum Total Protein (6.3-8.2) g/dL Albumin (3.5-5.0) g/dL Amylase (30-110) U/L Lipase (23-300) U/L Urine Color (YELLOW) Urine Appearance (CLEAR) Urine pH (5-6) Ur Specific Lemmon (1.005-1.025) Urine Protein (Negative) Urine Ketones (NEGATIVE) Urine Blood (0-5) Abdullahi/ul Urine Nitrite (NEGATIVE) Urine Bilirubin (NEGATIVE) Urine Urobilinogen (0-1) mg/dL Ur Leukocyte Esterase (NEGATIVE) Urine WBC (Auto) (0-5) /HPF Urine RBC (Auto) (0-2) /HPF U Epithel Cells (Auto) (FEW) /HPF Urine Bacteria (Auto) (NEGATIVE) /HPF Urine Mucus (Auto) (NEGATIVE) /HPF Urine Culture Reflexed (NO) Urine Glucose (NEGATIVE) mg/dL Acetaminophen < 10 L (10-30) ug/ml Influenza Type A Ag NEGATIVE (NEGATIVE) Influenza Type B Ag NEGATIVE (NEGATIVE) RSV (PCR) NEGATIVE (Negative) Slides for Path Review 12/17/19 12/17/19 12/17/19 Range/Units 04:19 04:19 04:19 WBC 14.8 H (4.0-10.5) K/mm3 RBC 5.26 (4.1-5.6) M/mm3 Hgb 16.1 (12.5-18.0) gm/dl Hct 46.9 (42-50) % MCV 89.2 (78-100) fl MCH 30.6 (26-32) pg MCHC 34.3 (32-36) g/dl RDW 13.4 (11.5-14.0) % Plt Count 140 L (150-450) K/mm3 MPV 12.8 H (7.5-11.0) fl Gran % 90.3 H (36.0-66.0) % Eos # (Auto) 0 (0-0.5) Absolute Lymphs (auto) 0.30 L (1.0-4.6) Absolute Monos (auto) 1.13 (0.0-1.3) Lymphocytes % 2.0 L (24.0-44.0) % Monocytes % 7.6 (0.0-12.0) % Eosinophils % 0.0 (0.00-5.0) % Basophils % 0.1 (0.0-0.4) % Absolute Granulocytes 13.38 H (1.4-6.9) Basophils # 0.01 (0-0.4) PT (8.83-12.87) SECONDS INR (0.8-3.0) Sodium 139 (137-145) mmol/L Potassium 3.7 (3.5-5.1) mmol/L Chloride 99 (98-107) mmol/L Carbon Dioxide 26 (22-30) mmol/L Anion Gap 17.2 H (5-15) MEQ/L BUN 18 (9-20) mg/dL Creatinine 0.87 (0.66-1.25) mg/dL Estimated GFR > 60.0 ML/MIN Glucose 123 H (74-106) mg/dL Lactic Acid (0.4-2.0) Calcium 9.9 (8.4-10.2) mg/dL Total Bilirubin 5.20 H (0.2-1.3) mg/dL Direct Bilirubin (0.0-0.4) mg/dL AST 650 H (17-59) U/L ALT 562 H (0-50) U/L Alkaline Phosphatase 232 H (38-126) U/L Troponin I < 0.012 (0.000-0.034) ng/mL Serum Total Protein 9.3 H (6.3-8.2) g/dL Albumin 5.2 H (3.5-5.0) g/dL Amylase 58 (30-110) U/L Lipase 73 (23-300) U/L Urine Color (YELLOW) Urine Appearance (CLEAR) Urine pH (5-6) Ur Specific Lemmon (1.005-1.025) Urine Protein (Negative) Urine Ketones (NEGATIVE) Urine Blood (0-5) Abdullahi/ul Urine Nitrite (NEGATIVE) Urine Bilirubin (NEGATIVE) Urine Urobilinogen (0-1) mg/dL Ur Leukocyte Esterase (NEGATIVE) Urine WBC (Auto) (0-5) /HPF Urine RBC (Auto) (0-2) /HPF U Epithel Cells (Auto) (FEW) /HPF Urine Bacteria (Auto) (NEGATIVE) /HPF Urine Mucus (Auto) (NEGATIVE) /HPF Urine Culture Reflexed (NO) Urine Glucose (NEGATIVE) mg/dL Acetaminophen (10-30) ug/ml Influenza Type A Ag (NEGATIVE) Influenza Type B Ag (NEGATIVE) RSV (PCR) (Negative) Slides for Path Review YES - Progress Progress: improved, re-examined Counseled pt/family regarding: lab results, diagnosis, need for follow-up, rad results <JOSE L POTTER - Last Filed: 12/17/19 07:04> <SETH MURDOCK - Last Filed: 12/18/19 00:10> - Progress Progress Note: 12/17/19 07:01 plan is for admission/transfer to [facility] for eval of cholangitis and tx; handing over to Dr. Murdock at [facility] for final dispo after discussion of pending transfer; (JOSE L POTTER) Patient care was transitioned to [place] by Dr. Potter. The patient presents with a chief complaint of RUQ abdominal pain, fever, transaminitis with leukocytosis and tachycardia. Working diagnosis is cholangitis from possible CBD stone onstruction given evidence of mild accentuation of extrahepatic bile ducts. Vague area of increased density near the confluence of the duodenum or area of extrahepatic ducts series 2, images 27-29. 12/17/19 07:31 [facility] called back and does not have ERCP capability. [facility] transferred [place] paged. Patient will likely need ERCP and ICU admission. 12/17/19 07:36 [facility] called back and transfer center will page Dr. Juarez and Edi. Imaging is currently being pushed over the the [facility] for to view. 12/17/19 07:40 Patient is ok with being tranferred to . 12/17/19 07:58 called back and I spoke to Dr. Peralta with ICU and Dr. Juarez with GI and discussed the case with them. Fabian recommended IICU/PCU and the patient can go to the hospitalist. Transfer center will call back with hospitalist and GI. 12/17/19 08:20 Transfer center called back and accepted the patient for transfer. Dr. Osborne hospitalist has accepted for transfer and Dr. Juarez with GI planning urgent ERCP. 12/17/19 08:21 Currently awaiting callback from transfer center for bed. 12/17/19 09:06 Radiology called to inform me the patient does indeed have a stone in his CBD. The stone is estimated to be 3 mm. [facility] has been paged, so I can update the hospitalist. 12/17/19 09:[address] Osborne, hospitalist at , and informed him of the radiology discrepancy in that the patient does indeed have a stone in the CBD. 12/17/19 10:15 the patient was reassessed time and he was still persistently tachycardic in the one teens her blood pressure was stable. His pain was relatively controlled , but he is complaining of a headache. Other having him a dose of Tylenol which a single dose should be okay given his mild elevation in LFTs. 12/17/19 13:44 [facility] was contacted and and still do not have a bed ready for the patient. 12/17/19 14:04 Patient's BP now 92/71 mmHg on recheck. 1 L of LR ordered and will reassess. If still hypotensive, patient may need to be upgraded to ICU status 12/17/19 14:04 Still waiting for bed 12/17/19 14:17 [facility] being paged to upgrade to ICU. BP is 90/60 mmHg manually. 12/17/19 14:21 Transfer center contacted and will call back with the ICU physician. 12/17/19 14:57 Transfer center with [facility] called back and Dr. Peralta agreed to accept to ICU. 12/17/19 15:28 [facility] now stating they have no beds available and [facility] transfer center has been called to see if arrange admission/transfer to their ICU 12/17/19 15:34 Patient about the need for central line and he agreed after the risks benefits of the procedure were discussed. Consent form will be signed. 12/17/19 15:[address] Nicholson, hosptialist at [facility], who agreed to accept the patient for transfer ICU. 12/17/19 17:39 Transport team now here to transfer to [facility] (SETH MURDOCK) <JOSE L POTTER - Last Filed: 12/17/19 07:04> - Departure Departure Disposition: Transfer (Transfer to ) Critical Care Time: Yes Critical Care Time(excluding separately billable procedures): Critical 30-74 mins <SETH MURDOCK - Last Filed: 12/18/19 00:10> - Departure Clinical Impression: Cholangitis, Metabolic acidosis, Thrombocytopenia, Common bile duct stone, Septic shock Condition: Stable Referrals: JALEN ROMANO [Primary Care Provider] -
[2019-12-17] MEDS ORDERED: Sodium Chloride 0.9% 1000 ML 1,000 ML IV STA (04:29)
[2019-12-17] MEDS ORDERED: FLAGYL 500 MG IVPB 500 MG/100 ML BAG IV STA ×2 (04:34→12:45)
[2019-12-17] MEDS ORDERED: ROCEPHIN 1 Gm-D5w 50 ml Bag** 1 G/50 ML IVPB IV STA (04:34)
[2019-12-17] MEDS ORDERED: ROCEPHIN 1 Gm-D5w 50 ml Bag** 1 G/50 ML IVPB IV ONE (04:42)
[2019-12-17] MEDS ORDERED: FLAGYL 500 MG IVPB 500 MG/100 ML BAG IV ONE ×2 (04:43→12:53)
[2019-12-17 04:45] LABS: ALBUMIN 5.2 g/dL (3.5-5.0); ALKALINE PHOSPHATASE 232 U/L (38-126); AMYLASE 58 U/L (30-110); ANION GAP 17.2 MEQ/L (5-15); BLOOD UREA NITROGEN 18 mg/dL (9-20); CHLORIDE 99 mmol/L (98-107); Calcium 9.9 mg/dL (8.4-10.2); Carbon Dioxide 26 mmol/L (22-30); Creatinine 1 0.87 mg/dL (0.66-1.25); Glucose 123 mg/dL (74-106); LIPASE 73 U/L (23-300); Potassium 3.7 mmol/L (3.5-5.1); SGOT/AST 650 U/L (17-59); SGPT/ALT 562 U/L (0-50); SODIUM 139 mmol/L (137-145); Total Protein 9.3 g/dL (6.3-8.2)
[2019-12-17 05:07] LABS: INFLUENZA A NEGATIVE (NEGATIVE); INFLUENZA B NEGATIVE (NEGATIVE); RESPIRATORY SYNCTIAL VIRUS NEGATIVE (Negative)
[2019-12-17 05:11] LABS: Slide Review 1 YES
[2019-12-17 05:11] LABS: Lactic Acid 1.9 (0.4-2.0)
[2019-12-17] MEDS ORDERED: BENADRYL 50 MG/ML IV ONE (05:22)
[2019-12-17] MEDS ORDERED: BENADRYL 50 MG/ML ONE (05:25)
[2019-12-17 06:11] LABS: Appearance CLEAR (CLEAR); Bacteria RARE /HPF (NEGATIVE); Bilirubin SMALL (NEGATIVE); Blood SMALL Ery/ul (0-5); Epithelial Cells RARE /HPF (FEW); Glucose NEGATIVE (NEGATIVE); Ketones TRACE (NEGATIVE); Leukocyte Esterase NEGATIVE (NEGATIVE); Mucus SLIGHT /HPF (NEGATIVE); Nitrite NEGATIVE (NEGATIVE); Protein,Urine Dip NEGATIVE (Negative); Specific Gravity 1.017 (1.005-1.025); Urobilinogen 4 mg/dL (0-1); WBC 0-2 /HPF (0-5)
[2019-12-17] MEDS ORDERED: Merrem 1 GM 1 G in Sodium Chloride 100ML MINI-BAG PLUS 100 ML IV STA (07:08)
[2019-12-17] MEDS ORDERED: Lactated Ringers 1,000 ML IV ONE ×5 (07:17→17:29)
[2019-12-17] MEDS ORDERED: PROTONIX 40 MG IV IV ONE ×2 (07:20→08:37)
[2019-12-17] MEDS ORDERED: TORAdol 30 mg Injection IV ONE ×4 (07:21→13:01)
[2019-12-17 07:27] LABS: INR 1.12 (0.8-3.0); PROTIME 12.7 SECONDS (8.83-12.87)
[2019-12-17] MEDS ORDERED: Dextrose 5%-Lr IV Solution 1000 ML 1,000 ML IV SCH (07:30)
[2019-12-17] MEDS ORDERED: Sodium Chloride 0.9% 100 ML IVPB 100 ML IV ONE (07:48)
[2019-12-17] MEDS ORDERED: Merrem 1 GM IV ONE (07:48)
[2019-12-17] MEDS ORDERED: Dextrose 5%-Lr IV Solution 1000 ML 1,000 ML IV ONE ×2 (07:49→17:31)
[2019-12-17] MEDS ORDERED: Hydromorphone 1 mg/ml Ampule IV ONE (08:29)
[2019-12-17] MEDS ORDERED: TORAdol 30 mg Injection ONE ×2 (08:37→12:53)
[2019-12-17] MEDS ORDERED: Hydromorphone 1 mg/ml Ampule ONE (08:37)
--- NOTE | 2019-12-17 09:10 | XRAY ---
Indication: Right abdominal pain. Elevated liver enzymes and elevated WBC. Multiple contiguous axial images obtained through the abdomen and pelvis without contrast as ordered. Comparison: September 05, 2015. Lung bases again demonstrates minimal dependent atelectasis without infiltrate or effusion. Heart is not enlarged. Noncontrasted stomach and bowel loops appear nonobstructed. Normal appendix. Again minimal descending and sigmoid diverticulosis. No free fluid/air. Again previous cholecystectomy with prominent common bile duct up to 1.4 cm. Stable 2 cm hyperdensity in the distal common bile duct again choledochal mass versus stone. Stable nonobstructing punctate right renal calculus and small left lower renal cyst. Remaining liver, pancreas, spleen, adrenal glands, kidneys, ureters, and bladder appear unremarkable for noncontrast exam. Stable mild aortoiliac calcifications without AAA. Osseous structures intact again with minimal lower lumbar degenerative changes and bilateral L5 spondylolysis without spondylolisthesis. Stable small fatty left inguinal hernia. Impression: 1. Continued prominent common bile duct with again distal intraluminal choledochal mass versus stone. Again MRCP or ERCP may yield further information if not are ready performed elsewhere. 2. Stable nonobstructing right renal micro-calculus, left renal cyst, colonic diverticulosis, fatty left inguinal hernia, and chronic bony findings. Comment: Preliminary interpretation was made by [facility] who reports "increased attenuation near the confluence of the duodenum and adjacent bowel ducts which is similar to the prior CT and could reflect duodenal diverticulum." I disagree and believe finding is in the distal common bile duct, choledochal mass versus stone. This is best seen on the sagittal/coronal reformatted images. Telephone report given to Dr. Murdock in the ER at 0859 hrs. on December 17, 2019.
[2019-12-17] MEDS ORDERED: TYLENOL 325 MG PO ONE (10:14)
[2019-12-17] MEDS ORDERED: TYLENOL 325 MG ONE (10:21)
[2019-12-17 13:12] LABS: BASOPHIL % 0.1 % (0.0-0.4); Basophil (Absolute #) 0.01 (0-0.4); Eosinophil (Absolute #) 0 (0-0.5); Hematocrit 37.9 % (42-50); Lymphocyte (Absolute #) 0.38 (1.0-4.6); Lymphocytes % 3.3 % (24.0-44.0); Mean Cell Volume 90.7 fl (78-100); Mean Corpuscular Hemoglobin 31.1 pg (26-32); Mean Corpuscular Hgb Concent. 34.3 g/dl (32-36); Mean Platelet Volume 12.6 fl (7.5-11.0); Monocyte (Absolute #) 0.72 (0.0-1.3); Monocytes % 6.3 % (0.0-12.0); Neutrophil % 90.3 % (36.0-66.0); Platelet Count 107 K/mm3 (150-450); Red Blood Count 4.18 M/mm3 (4.1-5.6); Red Cell Distribution Width 13.4 % (11.5-14.0); White Blood Count 11.5 K/mm3 (4.0-10.5)
[2019-12-17 13:35] LABS: ALBUMIN 3.7 g/dL (3.5-5.0); ALKALINE PHOSPHATASE 136 U/L (38-126); ANION GAP 13.7 MEQ/L (5-15); BLOOD UREA NITROGEN 19 mg/dL (9-20); CHLORIDE 102 mmol/L (98-107); Calcium 8.2 mg/dL (8.4-10.2); Carbon Dioxide 25 mmol/L (22-30); Direct Bilirubin 2.9 mg/dL (0.0-0.4); Glucose 117 mg/dL (74-106); Potassium 3.6 mmol/L (3.5-5.1); SGOT/AST 234 U/L (17-59); SGPT/ALT 313 U/L (0-50); SODIUM 137 mmol/L (137-145); Total Protein 6.6 g/dL (6.3-8.2)
[2019-12-17 13:53] LABS: Slide Review 1 YES
[2019-12-17 15:39] VITALS: BP 106/77; PULSE 94; O2SAT 96
[2019-12-17] MEDS ORDERED: XYLOCAINE 1% HCL 20 ML MDV ONE (16:41)
[2019-12-17] MEDS ORDERED: TYLENOL EXTRA STRENGTH 500 MG ONE (16:59)
[2019-12-18 11:15] LABS: HEPATITIS A IGM Non Reactive (Non Reactive); HEPATITIS B VIRUS CORE TOT AB Non Reactive (Non Reactive); HEPATITIS C VIRUS ANTIBODY Non Reactive (Non Reactive); Hepatitis B Surface Ab.Quant. <3.50 mIU/mL (0.00-8.49); Hepatitis B Surface Antigen Non Reactive (Non Reactive)
[2019-12-18 16:31] LABS: CMV DNA Quant by PCR Not Detected (Not Detected)
== END 2019-12-17 18:10 ==
LOC: ED 03:20
DX: K83.09 Other cholangitis (principal); E87.2 Acidosis; D69.6 Thrombocytopenia, unspecified; K80.50 Calculus of bile duct without cholangitis or cholecystitis without obstruction; R65.21 Severe sepsis with septic shock
CPT/HCPCS: 36000; 36415; 74176; 80048; 80053; 80074; 80076; 81001; 82150; 83605; 83690; 84484; 85025; 85610; 86665; 86701; 86702; 87389; 87497; 87631; 93005; 96360; 96361; 96365; 96367; 96374; 96375; 96376; 99285; 99291; G0481; J0696; J1170; J1200; J1885; J2270; J2405; A9270-GY

== ENCOUNTER 2021-02-08 19:34 | Emergency (ER) | payer BC, OTHER ==
[2021-02-08] MEDS ORDERED: PROTONIX 40 MG IV IV ONE ×2 (19:53→20:03)
[2021-02-08] MEDS ORDERED: Pepcid 20 MG VIAL IV ONE ×2 (19:53→20:03)
[2021-02-08] MEDS ORDERED: Nitrostat 0.4 MG (ED) SL ONE ×2 (19:57→20:03)
[2021-02-08] MEDS ORDERED: BABY ASPIRIN 81 MG CHEW PO ONE (19:57)
[2021-02-08] MEDS ORDERED: Sodium Chloride 0.9% 1000 ML 1,000 ML IV SCH (20:00)
[2021-02-08] MEDS ORDERED: Sodium Chloride 0.9% 1000 ML 1,000 ML ONE (20:03)
[2021-02-08] MEDS ORDERED: BABY ASPIRIN 81 MG CHEW ONE (20:03)
--- NOTE | 2021-02-08 20:04 | ERPHSYRPT ---
- History of Present Illness Time Seen by Provider: 02/08/21 19:58 Historian: patient Exam Limitations: no limitations Physician History: pt has epigastric symptoms but rad also in right upper chest which he feels similar to his prior common duct stones SP GB; john diet OK , but feels like some swallowing / throat symptoms after recent covid test neg more than a week ago. no hx CAD or cardiac events. Some heavy feeling with breathing , not yet requiring O2 , describes however as 4/10 CP. ABd is nontender but some epigastric pain as well. Timing/Duration: day(s) Activities at Onset: none Quality: burning, fullness, pressure Abdominal Pain Onset Location: epigastric Pain Radiation: chest Severity of Pain-Max: moderate Severity of Pain-Current: moderate Modifying Factors: Improves With: nothing Associated Symptoms: chest pain, heartburn, nausea, shortness of breath Previous symptoms: different symptoms, no recent treatment Allergies/Adverse Reactions: piperacillin [From Zosyn] Allergy (Verified 02/08/21 19:40) suture Allergy (Verified 02/08/21 19:40) states is allergic to vicryl stitching tazobactam [From Zosyn] Allergy (Verified 02/08/21 19:40) Home Medications: Lisinopril 20 mg [Zestril 20 MG] 20 mg PO DAILY 09/05/15 [History] Omeprazole 40 mg PO DAILY 04/04/18 [History] Multivitamin [Zsk-Scvgcd-Sikzu] 1 each PO DAILY 03/20/19 [History] Pravastatin Sodium 40 mg PO DAILY 12/17/19 [History] Cyclobenzaprine HCl 10 mg [Cyclobenzaprine 10 MG] 10 mg PO TID 02/08/21 [History] Oxycodone / APAP 10/325 mg [Oxycodone-Acetaminophen 10-325] 1 tab PO Q4- 6HPRN PRN 02/08/21 [History] Hx Tetanus, Diphtheria Vaccination/Date Given: Yes (unknown) Hx Influenza Vaccination/Date Given: No Hx Pneumococcal Vaccination/Date Given: No - Review of Systems Constitutional: No Fever, No Chills Eyes: No Symptoms Ears, Nose, & Throat: Other (swallowing symptoms) Respiratory: Dyspnea, No Cough Cardiac: No Chest Pain, No Edema, No Syncope Abdominal/Gastrointestinal: No Abdominal Pain, No Nausea, No Vomiting, No Diarrhea Genitourinary Symptoms: No Dysuria Musculoskeletal: No Back Pain, No Neck Pain Skin: No Symptoms, No Rash Neurological: No Dizziness, No Focal Weakness, No Sensory Changes Psychological: No Symptoms Endocrine: No Symptoms Hematologic/Lymphatic: No Symptoms Immunological/Allergic: No Symptoms All Other Systems: Reviewed and Negative - Past Medical History Pertinent Past Medical History: Yes Cardiac History: Hypertension GI Medical History: Gallbladder Disease 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 - Past Surgical History Past Surgical History: Yes Gastrointestinal: Cholecystectomy Musculoskeletal: Orthopedic Surgery Other Surgical History: RIGHT FOOT SURGERY, surgery on rt hand - Social History Smoking Status: Former smoker Exposure to second hand smoke: Yes Drug Use: none Patient Lives Alone: No - Nursing Vital Signs Nursing Vital Signs: Initial Vital Signs Temperature 98.4 F 02/08/21 19:42 Pulse Rate 86 02/08/21 19:42 Respiratory Rate 14 02/08/21 19:42 Blood Pressure 177/104 02/08/21 19:42 O2 Sat by Pulse Oximetry 99 02/08/21 19:42 Pain Scale Pain Intensity 0 - Physical Exam General Appearance: no apparent distress, alert Eye Exam: PERRL/EOMI, eyes nml inspection Ears, Nose, Throat Exam: normal ENT inspection, pharynx normal, moist mucous membranes Neck Exam: normal inspection, non-tender, supple, full range of motion Respiratory Exam: normal breath sounds, lungs clear, No respiratory distress Cardiovascular Exam: regular rate/rhythm, normal heart sounds Gastrointestinal/Abdomen Exam: soft, No tenderness, No mass Rectal Exam: deferred Back Exam: normal inspection, normal range of motion, No CVA tenderness, No vertebral tenderness Extremity Exam: normal inspection, normal range of motion, pelvis stable Neurologic Exam: alert, oriented x 3, cooperative, normal mood/affect, nml cerebellar function, sensation nml, No motor deficits Skin Exam: normal color, warm, dry SpO2 Interpretation: normal O2 Delivery: Room Air - Course Nursing assessment & vital signs reviewed: Yes EKG Interpreted by Me: Sinus Rhythm, Left [place] Deviation, Non-specific ST Changes - Radiology Exams Chest X-ray Interpretation: Reviewed by me, No Pneumothorax, Other (bilateral granulomata) - CT Exams Abdomen/Pelvis CT Interpretation: Tele-radiologist Report, Other (right renal growth, R renal stone nonobs, LIH, air in CBD no dil or stones) Chest CT Interpretation: Tele-radiologist Report, No PE Ordered Tests: Active Orders 24 hr Category Date Time Status Date Pitter STAT Care 02/08/21 20:02 Active EKG-ER Only STAT Care 02/08/21 19:53 Active IV Insertion STAT Care 02/08/21 19:53 Active ABDOMEN AND PELVIS W/0 CONTRAS [CT] Stat Exams 02/08/21 19:55 Taken CHEST 2 VIEWS (PA AND LAT) Stat Exams 02/08/21 19:54 Taken CHEST WITH CONTRAST [CT] Stat Exams 02/08/21 21:10 Taken AMYLASE Stat Lab 02/08/21 19:55 Completed CBC W DIFF Stat Lab 02/08/21 19:55 Completed CMP Stat Lab 02/08/21 19:55 Completed D-DIMER QUANTITATIVE Stat Lab 02/08/21 19:55 Completed LIPASE Stat Lab 02/08/21 19:55 Completed Lactic Acid Stat Lab 02/08/21 19:53 Completed NT PRO BNP Stat Lab 02/08/21 19:55 Completed TROPONIN Q3H Lab 02/08/21 19:55 Completed TROPONIN Q3H Lab 02/08/21 23:00 Received TROPONIN Q3H Lab 02/09/21 02:00 Ordered TROPONIN Q3H Lab 02/09/21 05:00 Ordered TROPONIN Q3H Lab 02/09/21 08:00 Ordered UA W/RFX UR CULTURE Stat Lab 02/08/21 20:01 Completed Medication Summary Generic Name Dose Route Start Last Admin Trade Name Freq PRN Reason Stop Dose Admin Sodium Chloride 1,000 mls @ 100 mls/hr 02/08/21 20:00 02/08/21 20:08 Sodium Chloride 0.9% 1000 Ml IV 03/10/21 19:59 100 mls/hr .Q10H BRITTANEY Administration Discontinued Medications Generic Name Dose Route Start Last Admin Trade Name Freq PRN Reason Stop Dose Admin Aspirin 324 mg 02/08/21 19:57 02/08/21 20:08 Baby Aspirin 81 Mg Chew PO 02/08/21 19:58 324 mg STAT ONE Administration Aspirin Confirm 02/08/21 20:03 Baby Aspirin 81 Mg Chew Administered 02/08/21 20:04 Dose 324 mg .ROUTE .STK-MED ONE Diphenhydramine HCl 25 mg 02/08/21 20:21 02/08/21 20:38 Benadryl 50 Mg/Ml IV 02/08/21 20:22 25 mg STAT ONE Administration Diphenhydramine HCl Confirm 02/08/21 20:36 Benadryl 50 Mg/Ml Administered 02/08/21 20:37 Dose 50 mg .ROUTE .STK-MED ONE Famotidine 20 mg 02/08/21 19:53 02/08/21 20:08 Pepcid 20 Mg Vial IV 02/08/21 19:54 20 mg STAT ONE Administration Famotidine Confirm 02/08/21 20:03 Pepcid 20 Mg Vial Administered 02/08/21 20:04 Dose 20 mg IV .STK-MED ONE Morphine Sulfate 4 mg 02/08/21 20:21 02/08/21 20:38 Morphine Sulfate 4 Mg Inj IV 02/08/21 20:22 4 mg STAT ONE Administration Morphine Sulfate Confirm 02/08/21 20:36 Morphine Sulfate 4 Mg Inj Administered 02/08/21 20:37 Dose 4 mg .ROUTE .STK-MED ONE Nitroglycerin 0.4 mg 02/08/21 19:57 02/08/21 20:08 Nitrostat 0.4 Mg (Ed) SL 02/08/21 19:58 0.4 mg STAT ONE Administration Nitroglycerin Confirm 02/08/21 20:03 Nitrostat 0.4 Mg (Ed) Administered 02/08/21 20:04 Dose 0.4 mg SL .STK-MED ONE Ondansetron HCl 4 mg 02/08/21 20:21 02/08/21 20:38 Zofran 4 Mg/2 Ml Vial IV 02/08/21 20:22 4 mg STAT ONE Administration Ondansetron HCl Confirm 02/08/21 20:36 Zofran 4 Mg/2 Ml Vial Administered 02/08/21 20:37 Dose 4 mg .ROUTE .STK-MED ONE Pantoprazole Sodium 40 mg 02/08/21 19:53 02/08/21 20:08 Protonix 40 Mg Iv IV 02/08/21 19:54 40 mg STAT ONE Administration Pantoprazole Sodium Confirm 02/08/21 20:03 Protonix 40 Mg Iv Administered 02/08/21 20:04 Dose 40 mg IV .[employer]-MED ONE Lab/Rad Data: Laboratory Result Diagrams 02/08/21 19:55 02/08/21 19:55 Laboratory Results 02/08/21 02/08/21 02/08/21 Range/Units 20:01 19:55 19:55 WBC (4.0-10.5) K/mm3 RBC (4.1-5.6) M/mm3 Hgb (12.5-18.0) gm/dl Hct (42-50) % MCV (78-100) fl MCH (26-32) pg MCHC (32-36) g/dl RDW (11.5-14.0) % Plt Count (150-450) K/mm3 MPV (7.5-11.0) fl Gran % (36.0-66.0) % Eos # (Auto) (0-0.5) Absolute Lymphs (auto) (1.0-4.6) Absolute Monos (auto) (0.0-1.3) Lymphocytes % (24.0-44.0) % Monocytes % (0.0-12.0) % Eosinophils % (0.00-5.0) % Basophils % (0.0-0.4) % Absolute Granulocytes (1.4-6.9) Basophils # (0-0.4) D-Dimer 1063 H* (215-500) ng/mL Sodium (137-145) mmol/L Potassium (3.5-5.1) mmol/L Chloride (98-107) mmol/L Carbon Dioxide (22-30) mmol/L Anion Gap (5-15) MEQ/L BUN (9-20) mg/dL Creatinine (0.66-1.25) mg/dL Estimated GFR ML/MIN Glucose (74-106) mg/dL Lactic Acid (0.4-2.0) Calcium (8.4-10.2) mg/dL Total Bilirubin (0.2-1.3) mg/dL AST (17-59) U/L ALT (0-50) U/L Alkaline Phosphatase (38-126) U/L Troponin I (0.000-0.034) ng/mL NT-Pro-B Natriuret Pep 59.0 (0-900) pg/mL Serum Total Protein (6.3-8.2) g/dL Albumin (3.5-5.0) g/dL Amylase (30-110) U/L Lipase (23-300) U/L Urine Color YELLOW (YELLOW) Urine Appearance CLEAR (CLEAR) Urine pH 7.0 (5-6) Ur Specific [place] 1.012 (1.005-1.025) Urine Protein NEGATIVE (Negative) Urine Ketones NEGATIVE (NEGATIVE) Urine Blood NEGATIVE (0-5) Abdullahi/ul Urine Nitrite NEGATIVE (NEGATIVE) Urine Bilirubin NEGATIVE (NEGATIVE) Urine Urobilinogen NEGATIVE (0-1) mg/dL Ur Leukocyte Esterase NEGATIVE (NEGATIVE) Urine WBC (Auto) NONE (0-5) /HPF Urine RBC (Auto) 0-2 (0-2) /HPF U Epithel Cells (Auto) NONE (FEW) /HPF Urine Bacteria (Auto) NONE (NEGATIVE) /HPF Urine Mucus (Auto) SLIGHT (NEGATIVE) /HPF Urine Culture Reflexed NO (NO) Urine Glucose NEGATIVE (NEGATIVE) mg/dL 02/08/21 02/08/21 02/08/21 Range/Units 19:55 19:55 19:55 WBC 11.1 H (4.0-10.5) K/mm3 RBC 4.21 (4.1-5.6) M/mm3 Hgb 12.8 (12.5-18.0) gm/dl Hct 39.1 L (42-50) % MCV 92.9 (78-100) fl MCH 30.4 (26-32) pg MCHC 32.7 (32-36) g/dl RDW 12.9 (11.5-14.0) % Plt Count 221 (150-450) K/mm3 MPV 11.7 H (7.5-11.0) fl Gran % 74.0 H (36.0-66.0) % Eos # (Auto) 0.20 (0-0.5) Absolute Lymphs (auto) 1.90 (1.0-4.6) Absolute Monos (auto) 0.77 (0.0-1.3) Lymphocytes % 17.1 L (24.0-44.0) % Monocytes % 6.9 (0.0-12.0) % Eosinophils % 1.8 (0.00-5.0) % Basophils % 0.2 (0.0-0.4) % Absolute Granulocytes 8.23 H (1.4-6.9) Basophils # 0.02 (0-0.4) D-Dimer (215-500) ng/mL Sodium 138 (137-145) mmol/L Potassium 4.3 (3.5-5.1) mmol/L Chloride 100 (98-107) mmol/L Carbon Dioxide 28 (22-30) mmol/L Anion Gap 14.0 (5-15) MEQ/L BUN 16 (9-20) mg/dL Creatinine 0.75 (0.66-1.25) mg/dL Estimated GFR > 60.0 ML/MIN Glucose 81 (74-106) mg/dL Lactic Acid (0.4-2.0) Calcium 9.9 (8.4-10.2) mg/dL Total Bilirubin 0.70 (0.2-1.3) mg/dL AST 33 (17-59) U/L ALT 21 (0-50) U/L Alkaline Phosphatase 118 (38-126) U/L Troponin I < 0.012 (0.000-0.034) ng/mL NT-Pro-B Natriuret Pep (0-900) pg/mL Serum Total Protein 8.2 (6.3-8.2) g/dL Albumin 4.7 (3.5-5.0) g/dL Amylase 39 (30-110) U/L Lipase 65 (23-300) U/L Urine Color (YELLOW) Urine Appearance (CLEAR) Urine pH (5-6) Ur Specific [place] (1.005-1.025) Urine Protein (Negative) Urine Ketones (NEGATIVE) Urine Blood (0-5) Abdullahi/ul Urine Nitrite (NEGATIVE) Urine Bilirubin (NEGATIVE) Urine Urobilinogen (0-1) mg/dL Ur Leukocyte Esterase (NEGATIVE) Urine WBC (Auto) (0-5) /HPF Urine RBC (Auto) (0-2) /HPF U Epithel Cells (Auto) (FEW) /HPF Urine Bacteria (Auto) (NEGATIVE) /HPF Urine Mucus (Auto) (NEGATIVE) /HPF Urine Culture Reflexed (NO) Urine Glucose (NEGATIVE) mg/dL 02/08/21 Range/Units 19:53 WBC (4.0-10.5) K/mm3 RBC (4.1-5.6) M/mm3 Hgb (12.5-18.0) gm/dl Hct (42-50) % MCV (78-100) fl MCH (26-32) pg MCHC (32-36) g/dl RDW (11.5-14.0) % Plt Count (150-450) K/mm3 MPV (7.5-11.0) fl Gran % (36.0-66.0) % Eos # (Auto) (0-0.5) Absolute Lymphs (auto) (1.0-4.6) Absolute Monos (auto) (0.0-1.3) Lymphocytes % (24.0-44.0) % Monocytes % (0.0-12.0) % Eosinophils % (0.00-5.0) % Basophils % (0.0-0.4) % Absolute Granulocytes (1.4-6.9) Basophils # (0-0.4) D-Dimer (215-500) ng/mL Sodium (137-145) mmol/L Potassium (3.5-5.1) mmol/L Chloride (98-107) mmol/L Carbon Dioxide (22-30) mmol/L Anion Gap (5-15) MEQ/L BUN (9-20) mg/dL Creatinine (0.66-1.25) mg/dL Estimated GFR ML/MIN Glucose (74-106) mg/dL Lactic Acid 0.5 (0.4-2.0) Calcium (8.4-10.2) mg/dL Total Bilirubin (0.2-1.3) mg/dL AST (17-59) U/L ALT (0-50) U/L Alkaline Phosphatase (38-126) U/L Troponin I (0.000-0.034) ng/mL NT-Pro-B Natriuret Pep (0-900) pg/mL Serum Total Protein (6.3-8.2) g/dL Albumin (3.5-5.0) g/dL Amylase (30-110) U/L Lipase (23-300) U/L Urine Color (YELLOW) Urine Appearance (CLEAR) Urine pH (5-6) Ur Specific [place] (1.005-1.025) Urine Protein (Negative) Urine Ketones (NEGATIVE) Urine Blood (0-5) Abdullahi/ul Urine Nitrite (NEGATIVE) Urine Bilirubin (NEGATIVE) Urine Urobilinogen (0-1) mg/dL Ur Leukocyte Esterase (NEGATIVE) Urine WBC (Auto) (0-5) /HPF Urine RBC (Auto) (0-2) /HPF U Epithel Cells (Auto) (FEW) /HPF Urine Bacteria (Auto) (NEGATIVE) /HPF Urine Mucus (Auto) (NEGATIVE) /HPF Urine Culture Reflexed (NO) Urine Glucose (NEGATIVE) mg/dL - Progress Progress: improved, re-examined Progress Note: 02/08/21 20:22 no effect from NTG, will also give MS. 02/08/21 20:57 pain improved after pain meds. noted to have some chest discomfort associated with swallowing. - no throat pain , and able to swallow OK in ER. Pharynx clear. No stridor. 02/08/21 21:43 pt and conseted to PE CT after discussion of risks and benefits and indication. 02/08/21 22:[address] reading with some delay this pm. 02/08/21 23:12 discussed with pt and limitations of testing performed and that undetected cardiac , GI including biliary infection or other serious pathology ( including risk of ) could still be evolving undetected and cannot yet be ruled out completly even though esophageal esophagitis CT findings and hx are consistent with that condition. They prefer DC with outpt followup rather thatn admit to rule out cardio , biliary infection or other concerns, and have the capacity to make this choice. THey will try outpt Tx , f/u GI and PCP for furhter workup and return meantime if not improving or other symptoms of concern. Counseled pt/family regarding: lab results, diagnosis, need for follow-up, rad results - Departure Departure Disposition: Home Clinical Impression: Mass of right kidney, right renal stone nonobstructing, CBD air without obstruction or stone , Left inguinal hernia, Diverticulum of duodenum without complication, Diverticulosis of colon, Esophagitis, Atypical chest pain Condition: Good Critical Care Time: No Referrals: JALEN ROMANO [Primary Care Provider] - Instructions: Kidney Stones (DC), Diverticulosis (DC), Groin Hernia (DC), Steven's Esophagus (DC), Acid Reflux and GERD in Adults (DC), Chest Pain (DC) Additional Instructions: Although the cat scan is consistent with esophagitis , there still could be undetected other causes for your symptoms including cardiac and infection , so be alert to those possibilities. Followup with your Dr for air in bowel duct ( which may be from previous procedure , but sometimes also seen in infections), growth on right kidney , kidney stone, diverticulosis and diverticula, and left hernia, and of course the esophagitis. Return meantime if fever, vomiting, increased pain, shortness of breath or other concerns. Prescriptions: Sucralfate 1 gm [Carafate 1 GM] 1 g PO HS 10 Days #10 tablet Famotidine [Pepcid] 20 mg PO BID #30 tablet
[2021-02-08 20:15] LABS: Absolute Neutrophil Ct (ANC) 8.23 (1.4-6.9); BASOPHIL % 0.2 % (0.0-0.4); Basophil (Absolute #) 0.02 (0-0.4); Eosinophil % 1.8 % (0.00-5.0); Hematocrit 39.1 % (42-50); Hemoglobin 12.8 gm/dl (12.5-18.0); Lymphocytes % 17.1 % (24.0-44.0); Mean Cell Volume 92.9 fl (78-100); Mean Corpuscular Hemoglobin 30.4 pg (26-32); Mean Corpuscular Hgb Concent. 32.7 g/dl (32-36); Mean Platelet Volume 11.7 fl (7.5-11.0); Monocyte (Absolute #) 0.77 (0.0-1.3); Monocytes % 6.9 % (0.0-12.0); Platelet Count 221 K/mm3 (150-450); Red Blood Count 4.21 M/mm3 (4.1-5.6); Red Cell Distribution Width 12.9 % (11.5-14.0); White Blood Count 11.1 K/mm3 (4.0-10.5)
[2021-02-08 20:16] LABS: Appearance CLEAR (CLEAR); Bilirubin NEGATIVE (NEGATIVE); Blood NEGATIVE Ery/ul (0-5); Glucose NEGATIVE (NEGATIVE); Ketones NEGATIVE (NEGATIVE); Leukocyte Esterase NEGATIVE (NEGATIVE); Mucus SLIGHT /HPF (NEGATIVE); Nitrite NEGATIVE (NEGATIVE); Protein,Urine Dip NEGATIVE (Negative); RBC 0-2 /HPF (0-2); Specific Gravity 1.012 (1.005-1.025); Urobilinogen NEGATIVE mg/dL (0-1)
[2021-02-08] MEDS ORDERED: MORPHINE SULFATE 4 MG INJ IV ONE (20:21)
[2021-02-08] MEDS ORDERED: Zofran 4 MG/2 ML VIAL IV ONE (20:21)
[2021-02-08] MEDS ORDERED: BENADRYL 50 MG/ML IV ONE (20:21)
[2021-02-08 20:28] LABS: ALBUMIN 4.7 g/dL (3.5-5.0); ALKALINE PHOSPHATASE 118 U/L (38-126); AMYLASE 39 U/L (30-110); BLOOD UREA NITROGEN 16 mg/dL (9-20); CHLORIDE 100 mmol/L (98-107); Calcium 9.9 mg/dL (8.4-10.2); Carbon Dioxide 28 mmol/L (22-30); Creatinine 1 0.75 mg/dL (0.66-1.25); EST GLOMERULAR FILTRATION RATE > 60.0 ML/MIN; Glucose 81 mg/dL (74-106); LIPASE 65 U/L (23-300); Potassium 4.3 mmol/L (3.5-5.1); SGOT/AST 33 U/L (17-59); SGPT/ALT 21 U/L (0-50); SODIUM 138 mmol/L (137-145); Total Protein 8.2 g/dL (6.3-8.2)
[2021-02-08] MEDS ORDERED: MORPHINE SULFATE 4 MG INJ ONE (20:36)
[2021-02-08] MEDS ORDERED: Zofran 4 MG/2 ML VIAL ONE (20:36)
[2021-02-08] MEDS ORDERED: BENADRYL 50 MG/ML ONE (20:36)
[2021-02-08] MEDS ORDERED: Carafate 1 GM PO ONE ×2 (23:28→23:33)
[2021-02-08] MEDS ORDERED: OXYCODONE-ACETAMINOPHEN 10-325 PO STA (23:28)
[2021-02-08] MEDS ORDERED: OXYCODONE-ACETAMINOPHEN 10-325 ONE (23:32)
[2021-02-08 23:41] VITALS: BP 122/83; PULSE 73; O2SAT 97
--- NOTE | 2021-02-09 08:37 | XRAY ---
Indication: Chest pain and short of breath. Elevated d-dimer. Status post left shoulder surgery. Multiple contiguous images obtained through the chest using 100 cc Isovue 370 contrast and PE protocol. Comparison: None There is adequate opacification of the pulmonary arteries to include the lobar and segmental branches. No pulmonary embolus. Heart is not enlarged. Aorta is normal in course and caliber. No pathologic mediastinal/hilar lymphadenopathy. Lungs demonstrate minimal bilateral dependent atelectasis. No suspicious pulmonary mass, infiltrates, or effusion. Bony thorax intact. CT abdomen/pelvis reported separately. Impression: Negative pulmonary embolus. No acute cardiopulmonary abnormalities. Comment: Preliminary interpretation was made by [facility]. No critical discrepancy.
--- NOTE | 2021-02-09 08:41 | XRAY ---
Indication: Epigastric pain. Dysphagia. Status post left shoulder surgery. Multiple contiguous images obtained through the abdomen and pelvis without contrast. Comparison: December 17, 2019. CT chest reported separately. Stomach is mildly distended with food/fluid. Noncontrasted stomach and bowel loops remain nonobstructed. Transverse duodenum again demonstrates small diverticulum. Normal appendix. Again minimal descending and sigmoid diverticulosis. There is now mild diffuse scattered colonic fecal debris throughout. Again previous cholecystectomy with now minimal pneumobilia. No free fluid/air. Stable nonobstructing right renal punctate calculus and small left renal cyst. Remaining liver, pancreas, spleen, adrenal glands, kidneys, ureters, and bladder appear unremarkable for noncontrast exam. There remains mild aortoiliac calcifications without AAA. Osseous structures intact again with L5 spondylolysis without spondylolisthesis and minimal lower lumbar degenerative changes. Stable small fatty left inguinal hernia. Impression: 1. New diffuse fecal stasis without obstruction. 2. Again incidental duodenal diverticulum, colonic diverticulosis, nonobstructing right renal micro-calculus, left renal cyst, fatty left inguinal hernia, and chronic bony findings. Comment: Preliminary interpretation was made by [facility]. No critical discrepancy.
--- NOTE | 2021-02-09 08:43 | XRAY ---
Indication: Chest pressure. Comparison: None PA/lateral chest demonstrates normal heart and lungs. Bony thorax intact.
== END 2021-02-08 23:49 | disposition home or self-care (01) ==
LOC: ED 19:34
DX: N28.89 Other specified disorders of kidney and ureter (principal); N20.0 Calculus of kidney; K40.90 Unilateral inguinal hernia, without obstruction or gangrene, not specified as recurrent; K57.10 Diverticulosis of small intestine without perforation or abscess without bleeding; K20.90 Esophagitis, unspecified without bleeding; R07.89 Other chest pain; R10.13 Epigastric pain; Z79.899 Other long term (current) drug therapy; I10 Essential (primary) hypertension
CPT/HCPCS: 36000; 36415; 71046; 71260; 74176; 80053; 81001; 82150; 83605; 83690; 83880; 84484; 85025; 85379; 93005; 93041; 96374; 96375; 99285; J1200; J2270; J2405; A9270-GY

== ENCOUNTER 2021-09-22 09:24 | Emergency (ER) | payer BC ==
[2021-09-22] MEDS ORDERED: DUONEB 0.5-3 MG/3 ml Neb IH ONE (09:56)
[2021-09-22] MEDS: DUONEB 0.5-3 MG/3 ml Neb IH ONE (09:57)
[2021-09-22 10:17] LABS: Absolute Neutrophil Ct (ANC) 2.04 (1.4-6.9); BASOPHIL % 0.3 % (0.0-0.4); Basophil (Absolute #) 0.01 (0-0.4); Eosinophil % 0.5 % (0.00-5.0); Eosinophil (Absolute #) 0.02 (0-0.5); Hematocrit 49.3 % (42-50); Hemoglobin 16.6 gm/dl (12.5-18.0); Lymphocyte (Absolute #) 0.87 (1.0-4.6); Lymphocytes % 23.8 % (24.0-44.0); Mean Cell Volume 90.1 fl (78-100); Mean Corpuscular Hemoglobin 30.3 pg (26-32); Mean Corpuscular Hgb Concent. 33.7 g/dl (32-36); Mean Platelet Volume 12.9 fl (7.5-11.0); Monocyte (Absolute #) 0.71 (0.0-1.3); Monocytes % 19.5 % (0.0-12.0); Neutrophil % 55.9 % (36.0-66.0); Platelet Count 110 K/mm3 (150-450); Red Blood Count 5.47 M/mm3 (4.1-5.6); Red Cell Distribution Width 13.9 % (11.5-14.0); White Blood Count 3.7 K/mm3 (4.0-10.5)
[2021-09-22 10:28] LABS: ALBUMIN 4.9 g/dL (3.5-5.0); ALKALINE PHOSPHATASE 83 U/L (38-126); ANION GAP 18.5 MEQ/L (5-15); BLOOD UREA NITROGEN 21 mg/dL (9-20); CHLORIDE 98 mmol/L (98-107); Calcium 9.8 mg/dL (8.4-10.2); Carbon Dioxide 28 mmol/L (22-30); Creatinine 1 1.02 mg/dL (0.66-1.25); EST GLOMERULAR FILTRATION RATE > 60.0 ML/MIN; Glucose 106 mg/dL (74-106); Potassium 5.4 mmol/L (3.5-5.1); SGOT/AST 45 U/L (17-59); SGPT/ALT 43 U/L (0-50); SODIUM 139 mmol/L (137-145); Total Protein 8.2 g/dL (6.3-8.2)
--- NOTE | 2021-09-22 10:32 | XRAY ---
Indication: Barky cough. Fatigue. Comparison: February 08, 2021. Portable chest remains clear. Heart not enlarged. Bony thorax intact. No new/acute findings.
--- NOTE | 2021-09-22 11:08 | ERPHSYRPT ---
- History of Present Illness Time Seen by Provider: 09/22/21 09:40 Source: patient Exam Limitations: no limitations Patient Subjective Stated Complaint: cough, fatigue, decreased appetite Triage Nursing Assessment: pt to ED c/o cough, fatigue, and decreased appetite x 4 days. pt states he spent the weekend in bed exhausted and attempting to cough up secretions. "It sounds raspy but I can't get it up." denies CP or SOB. Physician History: 60 years old male presented in the ER with chief complaint of worsening cough f or the last 4 days. Patient reports bouts of coughing and seems like he is unable to cough up anything. No fever but chills, body aches, fatigue tiredness and muscle aches. Denies any shortness of breath. No chest pain or palpitations. Unvaccinated against COVID-19 but denies any sick contact. Timing/Duration: day(s) (4), intermittent, gradual onset, worse Cough Quality/Degree: moderate, dry cough Possible Cause: no prior episodes Modifying Factors: Worsens With: coughing Associated Symptoms: chills, cough, muscle aches, No chest pain/soreness, No lightheadedness, No nasal congestion, No shortness of breath, No sinus infection, No sore throat, No wheezing Allergies/Adverse Reactions: piperacillin [From Zosyn] Allergy (Verified 09/22/21 09:49) suture Allergy (Verified 09/22/21 09:49) states is allergic to vicryl stitching tazobactam [From Zosyn] Allergy (Verified 09/22/21 09:49) Home Medications: Lisinopril 20 mg [Zestril 20 MG] 20 mg PO DAILY 09/05/15 [History] Omeprazole 40 mg PO DAILY 04/04/18 [History] Multivitamin [Ric-Wrmsmc-Wgvmn] 1 each PO DAILY 03/20/19 [History] Pravastatin Sodium 40 mg PO DAILY 12/17/19 [History] Cyclobenzaprine HCl 10 mg [Cyclobenzaprine 10 MG] 10 mg PO TID 02/08/21 [History] Oxycodone / APAP 10/325 mg [Oxycodone-Acetaminophen 10-325] 1 tab PO Q4- 6HPRN PRN 02/08/21 [History] Hx Tetanus, Diphtheria Vaccination/Date Given: No (unknown) Hx Influenza Vaccination/Date Given: No Hx Pneumococcal Vaccination/Date Given: No Immunizations Up to Date: No Travel Risk - International Travel Have you traveled outside of the country in past 3 weeks: No - Coronavirus Screening Are you exhibiting any of the following symptoms?: Yes Symptoms: Cough: New Onset, Headaches/Body Aches/Fatigue Close contact with a COVID-19 positive Pt in past 14-21 Days: No - Vaccine Status Have you recieved a Covid-19 vaccination: No - Review of Systems Constitutional: Chills, Fatigue Eyes: No Symptoms Ears, Nose, & Throat: No Symptoms Respiratory: Cough Cardiac: No Symptoms Abdominal/Gastrointestinal: No Symptoms Genitourinary Symptoms: No Symptoms Musculoskeletal: Myalgias Skin: No Symptoms Neurological: No Symptoms Psychological: No Symptoms Endocrine: No Symptoms Hematologic/Lymphatic: No Symptoms Immunological/Allergic: No Symptoms - Past Medical History Pertinent Past Medical History: Yes Cardiac History: High Cholesterol, Hypertension GI Medical History: Gallbladder Disease 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 - Past Surgical History Past Surgical History: Yes Gastrointestinal: Cholecystectomy Musculoskeletal: Orthopedic Surgery Other Surgical History: RIGHT FOOT SURGERY, surgery on rt hand - Social History Smoking Status: Former smoker Exposure to second hand smoke: Yes Drug Use: none Patient Lives Alone: No - Nursing Vital Signs Nursing Vital Signs: Initial Vital Signs Temperature 97.1 F 09/22/21 09:30 Pulse Rate 99 H 09/22/21 09:30 Respiratory Rate 16 09/22/21 09:30 Blood Pressure 124/89 09/22/21 09:30 O2 Sat by Pulse Oximetry 99 09/22/21 09:30 Pain Scale Pain Intensity 0 - Physical Exam General Appearance: no apparent distress, alert Eye Exam: PERRL/EOMI Ears, Nose, Throat Exam: TMs normal, pharyngeal erythema Neck Exam: normal inspection, supple, full range of motion Respiratory Exam: normal breath sounds, lungs clear Cardiovascular Exam: regular rate/rhythm, normal heart sounds Gastrointestinal/Abdomen Exam: soft, normal bowel sounds, No tenderness Back Exam: normal inspection, normal range of motion Extremity Exam: normal inspection, normal range of motion Neurologic Exam: alert, oriented x 3, cooperative, decorating equipment setter II-XII nml as tested Skin Exam: normal color SpO2 Interpretation: normal SpO2: 98 O2 Delivery: Room Air - Course EKG Interpreted by Me: RATE (77), Sinus Rhythm, NORMAL AXIS, NORMAL INTERVALS, Q-wave Ordered Tests: Active Orders 24 hr Category Date Time Status Chief Meter Reader STAT Care 09/22/21 12:04 Active EKG-ER Only STAT Care 09/22/21 10:52 Active IV Insertion STAT Care 09/22/21 12:03 Active CHEST 1 VIEW (PORTABLE) Stat Exams 09/22/21 09:52 Completed CHEST 1 VIEW (PORTABLE) Stat Exams 09/22/21 12:03 Ordered HEAD WITHOUT CONTRAST [CT] Stat Exams 09/22/21 12:03 Ordered BLOOD CULTURE Stat Lab 09/22/21 10:12 Received CBC W DIFF Stat Lab 09/22/21 10:08 Completed CMP Stat Lab 09/22/21 10:08 Completed Lactic Acid Stat Lab 09/22/21 10:25 Completed TROPONIN Q3H Lab 09/22/21 10:08 Completed Medication Summary Discontinued Medications Generic Name Dose Route Start Last Admin Trade Name Freq PRN Reason Stop Dose Admin Albuterol/Ipratropium 3 ml 09/22/21 09:51 09/22/21 09:57 Ipratropium/Albuterol Sulfate 3 Ml Ampul.Neb IH 09/22/21 09:52 3 ml STAT ONE Administration Albuterol/Ipratropium Confirm 09/22/21 09:56 Ipratropium/Albuterol Sulfate 3 Ml Ampul.Neb Administered 09/22/21 09:57 Dose 3 ml IH .STK-MED ONE Sodium Chloride 1,000 mls @ 999 mls/hr 09/22/21 10:51 09/22/21 11:15 Sodium Chloride 0.9% 1000 Ml IV 09/22/21 11:51 999 mls/hr .Q1H1M STA Administration Sodium Chloride Confirm 09/22/21 11:13 Sodium Chloride 0.9% 1000 Ml Administered 09/22/21 11:14 Dose 1,000 mls @ ud .ROUTE .STK-MED ONE Lab/Rad Data: Laboratory Result Diagrams 09/22/21 10:08 09/22/21 10:08 Laboratory Results 09/22/21 09/22/21 09/22/21 Range/Units 10:25 10:08 10:08 WBC (4.0-10.5) K/mm3 RBC (4.1-5.6) M/mm3 Hgb (12.5-18.0) gm/dl Hct (42-50) % MCV (78-100) fl MCH (26-32) pg MCHC (32-36) g/dl RDW (11.5-14.0) % Plt Count (150-450) K/mm3 MPV (7.5-11.0) fl Gran % (36.0-66.0) % Eos # (Auto) (0-0.5) Absolute Lymphs (auto) (1.0-4.6) Absolute Monos (auto) (0.0-1.3) Lymphocytes % (24.0-44.0) % Monocytes % (0.0-12.0) % Eosinophils % (0.00-5.0) % Basophils % (0.0-0.4) % Absolute Granulocytes (1.4-6.9) Basophils # (0-0.4) Sodium 139 (137-145) mmol/L Potassium 5.4 H (3.5-5.1) mmol/L Chloride 98 (98-107) mmol/L Carbon Dioxide 28 (22-30) mmol/L Anion Gap 18.5 H (5-15) MEQ/L BUN 21 H (9-20) mg/dL Creatinine 1.02 (0.66-1.25) mg/dL Estimated GFR > 60.0 ML/MIN Glucose 106 (74-106) mg/dL Lactic Acid 1.3 (0.4-2.0) Calcium 9.8 (8.4-10.2) mg/dL Total Bilirubin 1.00 (0.2-1.3) mg/dL AST 45 (17-59) U/L ALT 43 (0-50) U/L Alkaline Phosphatase 83 (38-126) U/L Troponin I < 0.012 (0.000-0.034) ng/mL Serum Total Protein 8.2 (6.3-8.2) g/dL Albumin 4.9 (3.5-5.0) g/dL 09/22/21 Range/Units 10:08 WBC 3.7 L (4.0-10.5) K/mm3 RBC 5.47 (4.1-5.6) M/mm3 Hgb 16.6 (12.5-18.0) gm/dl Hct 49.3 (42-50) % MCV 90.1 (78-100) fl MCH 30.3 (26-32) pg MCHC 33.7 (32-36) g/dl RDW 13.9 (11.5-14.0) % Plt Count 110 L (150-450) K/mm3 MPV 12.9 H (7.5-11.0) fl Gran % 55.9 (36.0-66.0) % Eos # (Auto) 0.02 (0-0.5) Absolute Lymphs (auto) 0.87 L (1.0-4.6) Absolute Monos (auto) 0.71 (0.0-1.3) Lymphocytes % 23.8 L (24.0-44.0) % Monocytes % 19.5 H (0.0-12.0) % Eosinophils % 0.5 (0.00-5.0) % Basophils % 0.3 (0.0-0.4) % Absolute Granulocytes 2.04 (1.4-6.9) Basophils # 0.01 (0-0.4) Sodium (137-145) mmol/L Potassium (3.5-5.1) mmol/L Chloride (98-107) mmol/L Carbon Dioxide (22-30) mmol/L Anion Gap (5-15) MEQ/L BUN (9-20) mg/dL Creatinine (0.66-1.25) mg/dL Estimated GFR ML/MIN Glucose (74-106) mg/dL Lactic Acid (0.4-2.0) Calcium (8.4-10.2) mg/dL Total Bilirubin (0.2-1.3) mg/dL AST (17-59) U/L ALT (0-50) U/L Alkaline Phosphatase (38-126) U/L Troponin I (0.000-0.034) ng/mL Serum Total Protein (6.3-8.2) g/dL Albumin (3.5-5.0) g/dL - Progress Progress: improved Air Movement: good Progress Note: 09/22/21 12:25 60 years old is evaluated for cough with chills. Afebrile and here. Maintaining oxygen saturation around 98% on room air, not tachypneic or tachycardic. Chest x-ray negative for any acute findings. Has low white count, platelets. Chemistry profile showed mild hyperkalemia/mild dehydration and EKG did not show any acute changes or tall T waves. Given fluids. I believe patient has bronchitis and could be Covid related viral illness. Will obtain COVID-19 test. Recommended contact/droplet precautions until his Covid test is back. We will give him Z- Gary and Decadron to go home and outpatient follow-up recommended. Discussed signs symptoms of worsening needing return to ER which he seems understanding. Blood Culture(s) Obtained: Yes Antibiotics given: Yes Counseled pt/family regarding: lab results, diagnosis, need for follow-up, rad results - Departure Departure Disposition: Home Clinical Impression: Hyperkalemia Acute bronchitis Qualifiers: Bronchitis organism: unspecified organism Qualified Code(s): J20.9 - Acute bronchitis, unspecified Condition: Stable Critical Care Time: No Referrals: JALEN ROMANO [Primary Care Provider] - (Call for appointment in 1 to 2 days for reevaluation.) Instructions: Cough, Adult (DC), Coronavirus Disease 2019 (COVID-19) (DC) Additional Instructions: Take Tylenol/ibuprofen as needed for aches and pains. Follow-up with your primary care physician for reevaluation. Return to ER for worsening cough or if develop chest pain/shortness of breath etc. Prescriptions: Dexamethasone [Decadron] 6 mg PO DAILY #5 tablet Azithromycin 250 mg [Zithromax 250 MG TABLET] 250 mg PO ZPACK #6 tablet
[2021-09-22] MEDS ORDERED: Sodium Chloride 0.9% 1000 ML 1,000 ML ONE (11:13)
[2021-09-22] MEDS: Sodium Chloride 0.9% 1000 ML 1,000 ML IV STA (11:15)
[2021-09-22 12:15] VITALS: BP 116/78; PULSE 78; O2SAT 98
[2021-09-22] MEDS ORDERED: DECADRON 10MG INJ. ONE (12:29)
[2021-09-22] MEDS: DECADRON 10MG INJ. IV ONE (12:30)
== END 2021-09-22 13:19 | disposition home or self-care (01) ==
LOC: ED 09:24
DX: J20.9 Acute bronchitis, unspecified (principal); I10 Essential (primary) hypertension; E78.00 Pure hypercholesterolemia, unspecified; Z79.899 Other long term (current) drug therapy
CPT/HCPCS: 36000; 36415; 71045; 80053; 83605; 84484; 85025; 87040; 93005; 93041; 94640; 96374; 99284; U0003; J1100; A9270-GY

== ENCOUNTER 2022-06-27 12:45 | Emergency (ER) | payer BC ==
[2022-06-27] MEDS ORDERED: Zofran 4 MG/2 ML VIAL IV ONE (13:35)
[2022-06-27] MEDS ORDERED: MORPHINE SULFATE 4 MG INJ IV ONE (13:35)
[2022-06-27] MEDS ORDERED: Sodium Chloride 0.9% 1000 ML 1,000 ML IV STA (13:35)
--- NOTE | 2022-06-27 13:39 | ERPHSYRPT ---
- History of Present Illness Time Seen by Provider: 06/27/22 12:48 Historian: patient Exam Limitations: no limitations Patient Subjective Stated Complaint: C/O right lower back pain that started at 10am today. States he keeps feeling like he needs to void but then goes very little. Triage Nursing Assessment: Patient ambulated back to ED. He is alert and oriented. No skin alterations or bruising to back noted. Rubbing lower back. Physician History: 61-year-old male with history of hypertension, hyperlipidemia, GERD presented in the ER with chief complaint of right flank/back pain for 4 hours with increased urinary frequency and sense of incomplete voiding without burning/dysuria or hematuria. Pain is moderate to severe dull aching, nonradiating, aggravated with palpation/movements and no significant relieving factors. Reports associated nausea without vomiting. No fever or chills reported. Denies any history of UTI in the past. Timing/Duration: hour(s) (4), constant, gradual onset, worse Activities at Onset: rest Quality: aching, dullness Abdominal Pain Onset Location: flank Pain Radiation: no radiation Severity of Pain-Max: severe Severity of Pain-Current: moderate Modifying Factors: Worsens With: movement, palpation Associated Symptoms: nausea, No vomiting Previous symptoms: no prior history Allergies/Adverse Reactions: piperacillin [From Zosyn] Allergy (Verified 06/27/22 12:57) suture Allergy (Verified 06/27/22 12:57) states is allergic to vicryl stitching tazobactam [From Zosyn] Allergy (Verified 06/27/22 12:57) Home Medications: Lisinopril 20 mg [Zestril 20 MG] 20 mg PO DAILY 09/05/15 [History] Omeprazole 40 mg PO DAILY 04/04/18 [History] Multivitamin [Dod-Yjyboy-Yiqdm] 1 each PO DAILY 03/20/19 [History] Pravastatin Sodium 40 mg PO DAILY 12/17/19 [History] Cyclobenzaprine HCl 10 mg [Cyclobenzaprine 10 MG] 10 mg PO TID 02/08/21 [History] Oxycodone / APAP 10/325 mg [Oxycodone-Acetaminophen 10-325] 1 tab PO Q4- 6HPRN PRN 02/08/21 [History] Hx Tetanus, Diphtheria Vaccination/Date Given: Yes Hx Influenza Vaccination/Date Given: No Hx Pneumococcal Vaccination/Date Given: No Immunizations Up to Date: Yes Travel Risk - International Travel Have you traveled outside of the country in past 3 weeks: No - Coronavirus Screening Are you exhibiting any of the following symptoms?: No - Vaccine Status Have you recieved a Covid-19 vaccination: No - Review of Systems Constitutional: No Symptoms Eyes: No Symptoms Ears, Nose, & Throat: No Symptoms Respiratory: No Symptoms Cardiac: No Symptoms Abdominal/Gastrointestinal: Abdominal Pain, Nausea Genitourinary Symptoms: Frequency Musculoskeletal: Back Pain Skin: No Symptoms Neurological: No Symptoms Psychological: No Symptoms Endocrine: No Symptoms Hematologic/Lymphatic: No Symptoms Immunological/Allergic: No Symptoms - Past Medical History Pertinent Past Medical History: Yes Cardiac History: High Cholesterol, Hypertension GI Medical History: Gallbladder Disease History: Other 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, small left kidney stone - Past Surgical History Past Surgical History: Yes Gastrointestinal: Cholecystectomy Musculoskeletal: Orthopedic Surgery Other Surgical History: RIGHT FOOT/heel SURGERY, surgery on rt hand, left shoulder, ERCP - Social History Smoking Status: Former smoker Exposure to second hand smoke: Yes Drug Use: none Patient Lives Alone: No - Nursing Vital Signs Nursing Vital Signs: Initial Vital Signs Temperature 97.3 F 06/27/22 12:57 Pulse Rate 80 06/27/22 12:57 Respiratory Rate 18 06/27/22 12:57 Blood Pressure 137/80 06/27/22 12:57 O2 Sat by Pulse Oximetry 98 06/27/22 12:57 Pain Scale Pain Intensity [Right lower 5 back] Pain Intensity 8 - Physical Exam General Appearance: no apparent distress Eye Exam: PERRL/EOMI Ears, Nose, Throat Exam: normal ENT inspection, pharynx normal, moist mucous membranes Neck Exam: normal inspection, supple, full range of motion Respiratory Exam: normal breath sounds, lungs clear Cardiovascular Exam: regular rate/rhythm, normal heart sounds Gastrointestinal/Abdomen Exam: soft, normal bowel sounds, tenderness (Right flank with positive CVA tenderness.) Back Exam: normal inspection, normal range of motion, CVA tenderness, No vertebral tenderness, No point tenderness Extremity Exam: normal inspection, normal range of motion, pelvis stable Neurologic Exam: alert, oriented x 3, cooperative Skin Exam: normal color SpO2 Interpretation: normal SpO2: 98 O2 Delivery: Room Air Ordered Tests: Active Orders 24 hr Category Date Time Status IV Insertion STAT Care 06/27/22 13:35 Active NPO (ED) STAT Care 06/27/22 13:35 Active ABDOMEN AND PELVIS W/0 CONTRAS [CT] Stat Exams 06/27/22 13:35 Taken CBC W DIFF Stat Lab 06/27/22 13:53 Completed CMP Stat Lab 06/27/22 13:53 Completed CULTURE,URINE Stat Lab 06/27/22 13:37 Received LIPASE Stat Lab 06/27/22 13:53 Completed UA W/RFX CULTURE Stat Lab 06/27/22 13:37 Results Medication Summary Generic Name Dose Route Start Last Admin Trade Name Freq PRN Reason Stop Dose Admin Tamsulosin HCl 0.4 mg 06/28/22 14:44 06/27/22 14:47 Tamsulosin Hcl 0.4 Mg Cap PO 06/28/22 14:45 0.4 mg STAT ONE Administration Discontinued Medications Generic Name Dose Route Start Last Admin Trade Name Freq PRN Reason Stop Dose Admin Sodium Chloride 1,000 mls @ 999 mls/hr 06/27/22 13:35 06/27/22 14:49 Sodium Chloride 0.9% 1000 Ml IV 06/27/22 14:35 Infused .Q1H1M STA Infusion Sodium Chloride Confirm 06/27/22 13:45 Sodium Chloride 0.9% 1000 Ml Administered 06/27/22 13:46 Dose 1,000 mls @ ud .ROUTE .STK-MED ONE Ketorolac Tromethamine 30 mg 06/27/22 14:48 Ketorolac Tromethamine 30 Mg/Ml Inj IV 06/27/22 14:49 STAT ONE Ketorolac Tromethamine Confirm 06/27/22 14:48 Ketorolac Tromethamine 30 Mg/Ml Inj Administered 06/27/22 14:49 Dose 30 mg .ROUTE .STK-MED ONE Levofloxacin 500 mg 06/27/22 14:43 06/27/22 14:47 Levofloxacin 500 Mg Tablet PO 06/27/22 14:44 500 mg STAT ONE Administration Levofloxacin Confirm 06/27/22 14:45 Levofloxacin 500 Mg Tablet Administered 06/27/22 14:46 Dose 500 mg .ROUTE .STK-MED ONE Morphine Sulfate 4 mg 06/27/22 13:35 06/27/22 13:46 Morphine Sulfate 4 Mg/Ml Injection IV 06/27/22 13:36 4 mg STAT ONE Administration Morphine Sulfate Confirm 06/27/22 13:45 Morphine Sulfate 4 Mg/Ml Injection Administered 06/27/22 13:46 Dose 4 mg .ROUTE .STK-MED ONE Ondansetron HCl 4 mg 06/27/22 13:35 06/27/22 13:46 Ondansetron Hcl 4 Mg/2 Ml Vial IV 06/27/22 13:36 4 mg STAT ONE Administration Ondansetron HCl Confirm 06/27/22 13:45 Ondansetron Hcl 4 Mg/2 Ml Vial Administered 06/27/22 13:46 Dose 4 mg .ROUTE .STK-MED ONE Tamsulosin HCl Confirm 06/27/22 14:46 Tamsulosin Hcl 0.4 Mg Cap Administered 06/27/22 14:47 Dose 0.4 mg .ROUTE .STK-MED ONE Lab/Rad Data: Laboratory Result Diagrams 06/27/22 13:53 06/27/22 13:53 Laboratory Results 06/27/22 06/27/22 06/27/22 Range/Units 13:53 13:53 13:37 WBC 10.5 (4.0-10.5) x10^3/uL RBC 4.83 (4.1-5.6) x10^6/uL Hgb 14.5 (12.5-18.0) g/dL Hct 43.7 (42-50) % MCV 90.5 (78-100) fL MCH 30.0 (26-32) pg MCHC 33.2 (32-36) g/dL RDW 13.0 (11.5-14.0) % Plt Count 132 L (150-450) x10^3/uL MPV 12.0 H (7.5-11.0) fL Gran % 84.7 H (36.0-66.0) % Immature Gran % (Auto) 0.3 (0.00-0.4) % Nucleat RBC Rel Count 0.0 (0.00-0.1) % Eos # (Auto) 0.05 (0-0.5) x10^3/uL Immature Gran # (Auto) 0.03 (0.00-0.03) x10^3u/L Absolute Lymphs (auto) 0.90 L (1.0-4.6) x10^3/uL Absolute Monos (auto) 0.58 (0.0-1.3) x10^3/uL Absolute Nucleated RBC 0.00 (0.00-0.01) x10^3u/L Lymphocytes % 8.6 L (24.0-44.0) % Monocytes % 5.5 (0.0-12.0) % Eosinophils % 0.5 (0.00-5.0) % Basophils % 0.4 (0.0-0.4) % Absolute Granulocytes 8.88 H (1.4-6.9) x10^3/uL Basophils # 0.04 (0-0.4) x10^3/uL Sodium 140 (137-145) mmol/L Potassium 4.1 (3.5-5.1) mmol/L Chloride 104 (98-107) mmol/L Carbon Dioxide 26 (22-30) mmol/L Anion Gap 13.9 (5-15) MEQ/L BUN 23 H (9-20) mg/dL Creatinine 1.01 (0.66-1.25) mg/dL Estimated GFR > 60.0 ML/MIN Glucose 102 (74-106) mg/dL Calcium 9.8 (8.4-10.2) mg/dL Total Bilirubin 0.80 (0.2-1.3) mg/dL AST 31 (17-59) U/L ALT 27 (0-50) U/L Alkaline Phosphatase 82 (38-126) U/L Serum Total Protein 8.0 (6.3-8.2) g/dL Albumin 4.8 (3.5-5.0) g/dL Lipase 112 (23-300) U/L Urinalys Dipstick Clnc Pending Urine Color YELLOW (YELLOW) Urine Appearance HAZY (CLEAR) Urine pH 6.0 (5-6) Ur Specific [place] 1.025 (1.005-1.025) POC Urine Protein Conf TRACE (Negative) Urine Ketones NEGATIVE (NEGATIVE) Urine Nitrite NEGATIVE (NEGATIVE) Urine Bilirubin NEGATIVE (NEGATIVE) Urine Urobilinogen 0.2 (0-1) mg/dL Urine Leukocytes NEGATIVE (NEGATIVE) Urine WBC (Auto) 6-10 (0-5) /HPF Urine RBC (Auto) >101 (0-2) /HPF U Epithel Cells (Auto) NONE (FEW) /HPF Urine Bacteria (Auto) NONE (NEGATIVE) /HPF Urine RBC LARGE (0-5) Abdullahi/ul Unidentified Crystals 25-50 (NEGATIVE) /HPF Urine Mucus (Auto) SLIGHT (NEGATIVE) /HPF Ur Culture Indicated? YES Urine Glucose NEGATIVE (NEGATIVE) mg/dL - Progress Progress: improved, re-examined Progress Note: 06/27/22 14:55 61-year-old is evaluated for right flank pain. Given IV fluids and symptomatic treatment for pain, on reevaluation feeling better. Has normal white count, grossly unremarkable chemistries. CT showed 1.8 mm right UVJ stone with trace right hydronephrosis and questionable pyelonephritis. Given a dose of Levaquin and Flomax. Patient is nontoxic. Do not think patient needs to be admitted or transfer. Recommended outpatient follow-up with urology for reevaluation in 1 to 2 days. Discussed signs symptoms of worsening needing return to ER which he seems understanding. Counseled pt/family regarding: lab results, diagnosis, need for follow-up, rad results - Departure Departure Disposition: Home Clinical Impression: Ureterolithiasis, Acute pyelonephritis Condition: Stable Critical Care Time: No Referrals: SANDIP MCCARTY MD [Primary Care Provider] - Follow up/PCP as directed (1-2 days for reevaluation) FELTON ELKINS [COURTESY STAFF] - Follow up/PCP as directed (Call tomorrow for appointment for reevaluation) Instructions: Kidney Stones (DC), Kidney Infection (DC) Additional Instructions: Take pain medications as needed. Continue with antibiotics. Follow-up with primary care and urology for reevaluation in 1 to 2 days. Return to ER for persistent pain/fever chills, difficulty urination or if develop nausea vomiting etc. Prescriptions: Hydrocodone/Acetaminophen [Hydrocodone-Acetamin 7.5-325] 1 each PO Q6HPRN PRN 3 Days #12 tablet MDD 4 PRN Reason: Pain Tamsulosin HCl 0.4 mg [Flomax 0.4 MG] 0.4 mg PO DAILY #30 cap Levofloxacin [Levaquin 500 MG Tablet] 500 mg PO DAILY #7 tablet
[2022-06-27] MEDS ORDERED: MORPHINE SULFATE 4 MG INJ ONE (13:45)
[2022-06-27] MEDS ORDERED: Zofran 4 MG/2 ML VIAL ONE (13:45)
[2022-06-27] MEDS ORDERED: Sodium Chloride 0.9% 1000 ML 1,000 ML ONE (13:45)
[2022-06-27 13:52] LABS: Absolute Neutrophil Ct (ANC) 8.88 x10^3/uL (1.4-6.9); Basophil (Absolute #) 0.04 x10^3/uL (0-0.4); Eosinophil % 0.5 % (0.00-5.0); Eosinophil (Absolute #) 0.05 x10^3/uL (0-0.5); Hematocrit 43.7 % (42-50); Hemoglobin 14.5 g/dL (12.5-18.0); Lymphocytes % 8.6 % (24.0-44.0); Mean Cell Volume 90.5 fL (78-100); Mean Corpuscular Hgb Concent. 33.2 g/dL (32-36); Monocyte (Absolute #) 0.58 x10^3/uL (0.0-1.3); Monocytes % 5.5 % (0.0-12.0); Neutrophil % 84.7 % (36.0-66.0); Platelet Count 132 x10^3/uL (150-450); Red Blood Count 4.83 x10^6/uL (4.1-5.6); White Blood Count 10.5 x10^3/uL (4.0-10.5)
[2022-06-27 14:19] LABS: Crystals Unidentified 25-50 /HPF (NEGATIVE); Mucus SLIGHT /HPF (NEGATIVE)
[2022-06-27 14:21] LABS: ALBUMIN 4.8 g/dL (3.5-5.0); ALKALINE PHOSPHATASE 82 U/L (38-126); ANION GAP 13.9 MEQ/L (5-15); BLOOD UREA NITROGEN 23 mg/dL (9-20); CHLORIDE 104 mmol/L (98-107); Calcium 9.8 mg/dL (8.4-10.2); Carbon Dioxide 26 mmol/L (22-30); Creatinine 1 1.01 mg/dL (0.66-1.25); EST GLOMERULAR FILTRATION RATE > 60.0 ML/MIN; Glucose 102 mg/dL (74-106); LIPASE 112 U/L (23-300); Potassium 4.1 mmol/L (3.5-5.1); SGOT/AST 31 U/L (17-59); SGPT/ALT 27 U/L (0-50); SODIUM 140 mmol/L (137-145)
[2022-06-27 14:30] LABS: Appearance HAZY (CLEAR); RBC >101 /HPF (0-2)
[2022-06-27 14:31] LABS: Bilirubin NEGATIVE (NEGATIVE); Glucose NEGATIVE (NEGATIVE); Ketones NEGATIVE (NEGATIVE); Nitrite NEGATIVE (NEGATIVE); Protein,Urine Dip TRACE (Negative); RBC LARGE Ery/ul (0-5); Specific Gravity 1.025 (1.005-1.025); Urine Cultured Indicated? YES; Urobilinogen 0.2 mg/dL (0-1)
[2022-06-27] MEDS ORDERED: Levofloxacin 500 MG Tablet PO ONE (14:43)
[2022-06-27] MEDS ORDERED: Levofloxacin 500 MG Tablet ONE (14:45)
[2022-06-27] MEDS ORDERED: Flomax 0.4 MG ONE (14:46)
[2022-06-27] MEDS ORDERED: TORAdol 30 mg Injection IV ONE (14:48)
[2022-06-27] MEDS ORDERED: TORAdol 30 mg Injection ONE (14:48)
[2022-06-27 15:00] VITALS: BP 149/84; PULSE 76; O2SAT 98
[2022-06-27 15:12] LABS: Dipstick done @ ? MAIN LAB
--- NOTE | 2022-06-27 19:59 | XRAY ---
Indication: Right flank pain. Multiple contiguous axial images obtained through abdomen and pelvis without contrast using renal stone protocol. Comparison: February 08, 2021 Lung bases demonstrates minimal left base subsegmental atelectasis/scarring. No infiltrate or effusion. Heart not enlarged. New 2 mm right UVJ calculus. Proximal right ureter is slightly prominent along with mild hydronephrosis and mild renal edema favoring obstructive uropathy. Stable left renal cysts. Noncontrasted stomach and bowel loops appear nonobstructed. Stable duodenal diverticulum and descending/ sigmoid diverticulosis without diverticulitis. Normal appendix. Again previous cholecystectomy with pneumobilia. No free fluid/air. Remaining liver, pancreas, spleen, adrenal glands, kidneys, ureters, and bladder are unremarkable for noncontrast exam. Stable mild scattered aortoiliac calcifications without AAA. Osseous structures intact again with mild double curvature scoliosis and bilateral L5 spondylolysis without spondylolisthesis. Impression: 1. New 2 mm right UVJ calculus producing partial obstructive uropathy as detailed. Stable left renal cysts. 2. Chronic findings including duodenal diverticulum, colonic diverticulosis, arteriosclerotic disease, and chronic bony findings. Comment: Preliminary interpretation made by [facility]. No critical discrepancy.
[2022-06-28] MEDS ORDERED: Flomax 0.4 MG PO ONE (14:44)
== END 2022-06-27 15:11 | disposition home or self-care (01) ==
LOC: ED 12:45
DX: N13.2 Hydronephrosis with renal and ureteral calculous obstruction (principal); N10 Acute pyelonephritis; R10.9 Unspecified abdominal pain; R35.0 Frequency of micturition; E78.5 Hyperlipidemia, unspecified; I10 Essential (primary) hypertension; Z79.899 Other long term (current) drug therapy; Z28.310 Unvaccinated for COVID-19; Z79.891 Long term (current) use of opiate analgesic
CPT/HCPCS: 36000; 36415; 74176; 80053; 81015; 83690; 85025; 87086; 96374; 96375; 99284; J1885; J2270; J2405; A9270-GY

== ENCOUNTER 2023-02-28 19:28 | Emergency (ER) | payer BC ==
--- NOTE | 2023-02-28 19:38 | ERPHSYRPT ---
- History of Present Illness Time Seen by Provider: 02/28/23 19:38 Source: patient Exam Limitations: no limitations Physician History: Patient presents w/ laceration to his left index finger after getting it smashed at work. Last tetanus shot unknown. Still bleeding on arrival. Timing/Duration: today Quality: painful Severity: moderate Location: hands Associated Symptoms: denies symptoms Allergies/Adverse Reactions: piperacillin [From Zosyn] Allergy (Verified 02/28/23 19:40) suture Allergy (Verified 02/28/23 19:40) states is allergic to vicryl stitching tazobactam [From Zosyn] Allergy (Verified 02/28/23 19:40) Home Medications: Lisinopril 20 mg [Zestril 20 MG] 20 mg PO DAILY 09/05/15 [History] Omeprazole 40 mg PO DAILY 04/04/18 [History] Multivitamin [[id number]-[id number]] 1 each PO DAILY 03/20/19 [History] Pravastatin Sodium 40 mg PO DAILY 12/17/19 [History] Hx Tetanus, Diphtheria Vaccination/Date Given: Yes Hx Influenza Vaccination/Date Given: No Hx Pneumococcal Vaccination/Date Given: No Travel Risk - Vaccine Status Have you recieved a Covid-19 vaccination: No - Review of Systems Constitutional: No Symptoms Eyes: No Symptoms Ears, Nose, & Throat: No Symptoms Respiratory: No Symptoms Cardiac: No Symptoms Abdominal/Gastrointestinal: No Symptoms Genitourinary Symptoms: No Symptoms Musculoskeletal: No Symptoms Skin: Other (laceration left index finger) Neurological: No Symptoms Psychological: No Symptoms Endocrine: No Symptoms Hematologic/Lymphatic: Easy Bleeding (hx thrombocytopenia) All Other Systems: Reviewed and Negative - Past Medical History Pertinent Past Medical History: Yes Cardiac History: High Cholesterol, Hypertension GI Medical History: Gallbladder Disease History: Other 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, small left kidney stone - Past Surgical History Past Surgical History: Yes Gastrointestinal: Cholecystectomy Musculoskeletal: Orthopedic Surgery Other Surgical History: RIGHT FOOT/heel SURGERY, surgery on rt hand, left shoulder, ERCP - Social History Smoking Status: Former smoker Exposure to second hand smoke: Yes Drug Use: none Patient Lives Alone: No - Nursing Vital Signs Nursing Vital Signs: Initial Vital Signs Temperature 98.7 F 02/28/23 19:35 Pulse Rate 87 02/28/23 19:35 Respiratory Rate 20 02/28/23 19:35 Blood Pressure 193/107 02/28/23 19:35 O2 Sat by Pulse Oximetry 98 02/28/23 19:35 Pain Scale Pain Intensity 6 - Physical Exam General Appearance: no apparent distress Neurologic Exam: alert, oriented x 3, cooperative, sensation nml Skin Exam: laceration (left palmar aspect of distal 2nd phalanx, bleeding) SpO2 Interpretation: normal O2 Delivery: Room Air Procedures - Laceration/Wound Repair Left Distal Volar Finger Time of Procedure: 20:25 Wound Location: Left, hand (volar aspect of 2nd distal digit) Wound Length (cm): 1 Wound's Depth, Shape: superficial, linear Wound Explored: clean Irrigated: Yes Hibiclens Prep: Yes Anesthesia: digital block, 1% Lidocaine (5cc) Volume Anesthetic (ccs): 5 Wound Debrided: minimal Wound Repaired With: sutures Suture Size/Type: 4-0, nylon Number of Sutures: 3 Layer Closure?: No Sterile Dressing Applied?: Yes Splint Applied?: No Sling Applied?: No - Course Nursing assessment & vital signs reviewed: Yes Ordered Tests: Medication Summary Discontinued Medications Generic Name Dose Route Start Last Admin Trade Name Freq PRN Reason Stop Dose Admin Diphtheria/Tetanus/Acell Pertussis 0.5 ml 02/28/23 20:23 02/28/23 20:25 Tdap --Diph,Pertuss(Acell),Tet Vac/Pf 0.5 Ml Vial IM 02/28/23 20:24 0.5 ml .ONCE ONE Administration Diphtheria/Tetanus/Acell Pertussis Confirm 02/28/23 20:24 Tdap --Diph,Pertuss(Acell),Tet Vac/Pf 0.5 Ml Vial Administered 02/28/23 20:25 Dose 0.5 ml IM .STK-MED ONE Lidocaine HCl Confirm 02/28/23 19:42 Lidocaine Hcl 1% 20 Ml Mdv 20 Ml Ml Administered 02/28/23 19:43 Dose 1 ml .ROUTE .STK-MED ONE - Progress Progress: improved Progress Note: 02/28/23 20:47 Patient tolerated procedure well, d/c instructions given. Counseled pt/family regarding: need for follow-up (7 days for suture removal) Medical Desision Making - Diagnostic Testing Diagnostic test were ordered, analyzed, and reviewed by me: No - Risk of complications Low Risk: Low risk of morbidity from additional dx testing or treatment - Departure Departure Disposition: Home Clinical Impression: Finger laceration Condition: Good Critical Care Time: No Referrals: SANDIP MCCARTY MD [Primary Care Provider] - Follow up/PCP as directed Instructions: Laceration Repair With Stitches (DC) Additional Instructions: You have been evaluated in the Emergency Department today for a laceration to your left index finger. Your laceration was repaired in the ED with sutures. Please keep the area surrounding the laceration clean and dry. Please keep the area out of the sunlight for the next 6 months to help prevent scarring. You should have the sutures removed in 7-10 days by your primary care physician, or at your local urgent care or ER. If you develop redness or swelling at the site of your laceration please come back to the ER for a wound check. We recommend you take 600mg ibuprofen every 6 hours or tylenol 650mg every 6 hours as needed for pain. If needed, you can alternate these medications so that you take one medication every 3 hours. For instance, at noon take ibuprofen, then at 3pm take tylenol, then at 6pm take ibuprofen. Please follow up with your primary care physician in 7-10 days for suture removal. You can also return to the ER or another urgent care facility for this service. Return to the Emergency Department if you experience discharge from your laceration, redness around your laceration, warmth around your laceration, fever, vomiting, numbness, tingling, or any other concerning symptoms. Thank you for choosing us for your care.
[2023-02-28] MEDS ORDERED: XYLOCAINE 1% HCL 20 ML MDV ONE (19:42)
[2023-02-28] MEDS ORDERED: Adacel Vial IM ONE ×2 (20:23→20:24)
[2023-02-28 20:36] VITALS: BP 148/96; PULSE 85; O2SAT 97
== END 2023-02-28 20:49 | disposition home or self-care (01) ==
LOC: ED 19:28
DX: S61.211A Laceration without foreign body of left index finger without damage to nail, initial encounter (principal); X58.XXXA Exposure to other specified factors, initial encounter; Y99.0 Civilian activity done for income or pay; E78.5 Hyperlipidemia, unspecified; I10 Essential (primary) hypertension; Z79.899 Other long term (current) drug therapy; Z28.310 Unvaccinated for COVID-19
CPT/HCPCS: 12001; 90471; 90715; 99282